=== PATIENT | male | born 1935 | race Caucasian/White ===

== ENCOUNTER 2017-07-23 19:54 | Inpatient (IN) | payer OTHER ==
[~2017-07-23] VITALS: Ht 172.7 cm; Wt 51.0 kg
[2017-07-23 20:15] VITALS: Ht 172.7 cm; Wt 51.0 kg
--- NOTE | 2017-07-24 01:42 | RADRPT ---
PROCEDURE: XR Chest. CLINICAL INDICATION: Cough. Possible sepsis. TECHNIQUE: Single frontal view of the chest was obtained COMPARISON: None FINDINGS: The heart and mediastinum are within normal limits. Aortic calcifications are present. The lungs are clear. There is no pleural effusion or pneumothorax. Surgical anchors overlie the right humeral head. Degenerative changes of the spine and shoulder join ts are present. IMPRESSION: 1. No acute cardiopulmonary disease. RPTAT:AAJJ Physician Mary Date Time Electronically viewed and signed by Nikki Baker Physician on 07/24/2017 01:42 QL/
[2017-07-24 01:48] LABS: BASOPHILS % 0.7 % (0.0-2.0); EOSINOPHILS # 0.1 10^3/ul (0.0-0.5); EOSINOPHILS % 2.2 % (0.0-7.0); HEMATOCRIT 37.4 % (42.0-52.0); HEMOGLOBIN 12.1 g/dl (14.0-18.0); LYMPHOCYTES # 1.5 10^3/ul (0.8-2.9); LYMPHOCYTES % 24.7 % (15.0-51.0); MEAN CORPUSCULAR HEMOGLOBIN 29.9 pg (29.0-33.0); MEAN CORPUSCULAR HGB CONC 32.4 g/dl (32.0-37.0); MEAN CORPUSCULAR VOLUME 92.3 fl (82.0-101.0); MEAN PLATELET VOLUME 10.5 fl (7.4-10.4); MONOCYTE # 0.4 10^3/ul (0.3-0.9); MONOCYTES % 6.2 % (0.0-11.0); NEUTROPHILS % 65.9 % (39.0-77.0); PLATELET COUNT 149 10^3/UL (140-415); RED BLOOD COUNT 4.05 10^6/ul (4.70-6.10); RED CELL DISTRIBUTION WIDTH 13.4 % (11.5-14.5)
[2017-07-24 01:53] LABS: ADD UMIC NO; UR ASCORBIC ACID NEGATIVE (NEGATIVE); UR BILIRUBIN (Dip) NEGATIVE (NEGATIVE); UR BLOOD (Dip) NEGATIVE (NEGATIVE); UR CLARITY CLEAR (CLEAR); UR COLOR STRAW (YELLOW); UR GLUCOSE (Dip) NEGATIVE (NEGATIVE); UR KETONES (Dip) NEGATIVE (NEGATIVE); UR LEUKOCYTE ESTERASE (Dip) NEGATIVE Leu/ul (NEGATIVE); UR NITRITE (Dip) NEGATIVE (NEGATIVE); UR SPECIFIC GRAVITY (Dip) 1.011 (1.003-1.030); UR TOTAL PROTEIN (Dip) NEGATIVE (NEGATIVE); UR UROBILINOGEN (Dip) NEGATIVE (NEGATIVE)
[2017-07-24 02:09] LABS: ALANINE AMINOTRANSFERASE 37 IU/L (13-69); ALBUMIN 3.8 g/dl (3.3-4.9); ALBUMIN/GLOBULIN RATIO 1.15; ALKALINE PHOSPHATASE 84 IU/L (42-121); ANION GAP 11 (8-16); ASPARTATE AMINO TRANSFERASE 26 IU/L (15-46); BILIRUBIN,INDIRECT 0.3 mg/dl (0-1.1); BILIRUBIN,TOTAL 0.3 mg/dl (0.2-1.3); BLOOD UREA NITROGEN 25 mg/dl (7-20); CALCIUM 9.1 mg/dl (8.4-10.2); CARBON DIOXIDE 34 mmol/L (21-31); CHLORIDE 104 mmol/L (97-110); CREATININE 0.91 mg/dl (0.61-1.24); GLUCOSE 99 mg/dl (70-220); POTASSIUM 4.3 mmol/L (3.5-5.1); SODIUM 145 mmol/L (135-144); TOTAL PROTEIN 7.1 g/dl (6.1-8.1)
[2017-07-24 02:28] LABS: TROPONIN-I < 0.012 ng/ml (0.00-0.12)
[2017-07-24 02:40] LABS: INR 1.08; PT RATIO 1.1
[2017-07-24 02:41] LABS: PARTIAL THROMBOPLASTIN TIME 30.5 Sec (25.0-35.0)
--- NOTE | 2017-07-24 02:59 | ERD ---
ER Documentation Chief Complaint Chief Complaint swelling and ulcers on lower bilateral leg;mech fall today (denies syncope) HPI This 82-year-old male swelling and ulcers on his bilateral lower extremities. Weeping wounds noted by family. Family brought him in for evaluation. No known history of diabetes. Family says has been getting progressively worse over the past 3 weeks. ROS All systems reviewed and are negative except as per history of present illness. Allergies Allergies: Coded Allergies: No Known Allergy (Unverified , 07/23/17) PMhx/Soc History of Surgery: Yes (shoulder sx) Anesthesia Reaction: No Hx Neurological Disorder: No Hx Respiratory Disorders: No Hx Cardiac Disorders: Yes (HTN, Cardiac problems) Hx Psychiatric Problems: No Hx Miscellaneous Medical Probl: No Hx Alcohol Use: No Hx Substance Use: No Hx Tobacco Use: No Smoking Status: Never smoker Physical Exam Vitals Vital Signs Date Time Temp Pulse Resp B/P Pulse Ox O2 Delivery O2 Flow Rate FiO2 07/23/17 20:15 98.1 68 20 190/81 100 Physical Exam Const: [] Head: Atraumatic Eyes: Normal Conjunctiva ENT: Normal External Ears, Nose and Mouth. Neck: Full range of motion..~ No meningismus. Resp: Clear to auscultation bilaterally Cardio: Regular rate and rhythm, no murmurs Abd: Soft, non tender, non distended. Normal bowel sounds Skin: Notable weeping wounds noted on bilateral lower extremities to the midcalf Back: No midline or flank tenderness Ext: No cyanosis, or edema Neur: Awake and alert Psych: Normal Mood and Affect Result Diagram: 07/24/17 0124 07/24/17 0111 Results 24 hrs Laboratory Tests Test 07/24/17 01:11 07/24/17 01:24 07/24/17 01:28 07/24/17 01:33 Sodium Level 145mmol/L Potassium Level 4.3mmol/L Chloride Level 104mmol/L Carbon Dioxide Level 34mmol/L Anion Gap 11 Blood Urea Nitrogen 25mg/dl Creatinine 0.91mg/dl Glucose Level 99mg/dl Calcium Level 9.1mg/dl Total Bilirubin 0.3mg/dl Direct Bilirubin 0.00mg/dl Indirect Bilirubin 0.3mg/dl Aspartate Amino Transf (AST/SGOT) 26IU/L Alanine Aminotransferase (ALT/SGPT) 37IU/L Alkaline Phosphatase 84IU/L Troponin I < 0.012ng/ml Total Protein 7.1g/dl Albumin 3.8g/dl Globulin 3.30g/dl Albumin/Globulin Ratio 1.15 White Blood Count 6.010^3/ul Red Blood Count 4.0510^6/ul Hemoglobin 12.1g/dl Hematocrit 37.4% Mean Corpuscular Volume 92.3fl Mean Corpuscular Hemoglobin 29.9pg Mean Corpuscular Hemoglobin Concent 32.4g/dl Red Cell Distribution Width 13.4% Platelet Count 62532^3/UL Mean Platelet Volume 10.5fl Neutrophils % 65.9% Lymphocytes % 24.7% Monocytes % 6.2% Eosinophils % 2.2% Basophils % 0.7% Nucleated Red Blood Cells % 0.0/100WBC Neutrophils # 4.010^3/ul Lymphocytes # 1.510^3/ul Monocytes # 0.410^3/ul Eosinophils # 0.110^3/ul Basophils # 0.010^3/ul Nucleated Red Blood Cells # 0.010^3/ul Prothrombin Time 14.0Sec Prothrombin Time Ratio 1.1 INR International Normalized Ratio 1.08 Activated Partial Thromboplast Time 30.5Sec Lactic Acid Level 1.2mmol/L Urine Color STRAW Urine Clarity CLEAR Urine pH 8.0 Urine Specific [place] 1.011 Urine Ketones NEGATIVEmg/dL Urine Nitrite NEGATIVEmg/dL Urine Bilirubin NEGATIVEmg/dL Urine Urobilinogen NEGATIVEmg/dL Urine Leukocyte Esterase NEGATIVELeu/ul Urine Hemoglobin NEGATIVEmg/dL Urine Glucose NEGATIVEmg/dL Urine Total Protein NEGATIVEmg/dl Procedures/MDM Medical decision-makin-year-old male with cellulitic changes to bilateral lower extremities. Patient will be admitted to hospitalist Departure Diagnosis: Primary Impression: Cellulitis Site of cellulitis: extremity Site of cellulitis of extremity: lower extremity Laterality: unspecified laterality Qualified Code: L03.119 - Cellulitis of lower extremity, unspecified laterality Condition: Serious ASHLEY SEN Jul 24, 2017 02:59
[2017-07-24] MEDS ORDERED: PIPER-TAZO 3.375 GM IV (PMX) 50 ML IV ONE (03:00)
[2017-07-24] MEDS ORDERED: TAMS-14 PO (08:08)
[2017-07-24] MEDS ORDERED: FURO40TA4 PO (08:08)
[2017-07-24] MEDS ORDERED: RIVA20TA PO (08:09)
[2017-07-24] MEDS ORDERED: ASPI81TA3 PO (08:09)
[2017-07-24 12:08] VITALS: PULSE 58; RESP 16
--- NOTE | 2017-07-24 13:57 | HP ---
Date/Time of Note Date/Time of Note DATE: 07/24/17 TIME: 13:50 Assessment/Plan VTE Prophylaxis VTE Prophylaxis Intervention: LMWH Lines/Catheters IV Catheter Type (from [facility]): Peripheral IV Urinary Cath still in place: No Assessment/Plan Assessment/Plan -Bilateral lower extremity cellulitis and ulceration. Will start vancomycin and Levaquin. Obtain wound care consult. Dr. Muller is asked to see patient in infection disease consultation. -Bilateral lower extremities edema most likely secondary to cellulitis, will obtain bilateral lower extremity ultrasound to rule out deep venous thrombosis. -Hypertension -Congestive heart failure -BPH Further recommendations based on clinical course. Plan of care discussed with Dr. Melo. HPI/ROS Admit Date/Time Admit Date/Time Jul 24, 2017 at 03:30 Hx of Present Illness The patient is 82-year-old gentleman who was brought to emergency room by family him home due to bilateral lower extremity swelling and ulcers. Patient is a poor historian and most of the history was obtained from medical records and talking to nursing staff. Patient has a history of hypertension, CHF, BPH. Patient was diagnosed with bilateral lower extremity cellulitis and admitted for further evaluation and management. Patient denies any nausea vomiting denies diarrhea denies shortness of breath, denies chest pain. ROS Per HPI PMH/Family/Social Past Medical History Medical History: congestive heart failure, hypertension Past Surgical History S/p right shoulder surgery Family History Significant Family History: no pertinent family hx Social History Alcohol Use: none Smoking Status: Never smoker Drug Use: none Exam/Review of Systems Vital Signs Vitals Vital Signs Date Time Temp Pulse Resp B/P Pulse Ox O2 Delivery O2 Flow Rate FiO2 07/24/17 12:08 98.0 58 16 99 Room Air 07/24/17 11:14 172/82 Exam Constitutional: alert, oriented Head: normocephalic Neck: supple Respiratory: normal air movement Cardiovascular: nl pulses Gastrointestinal: non-tender, soft Extremities: edema, normal pulses, other (Erythema) Neurological: nl mental status Skin: other (Left lower extremity ulcer) Labs Result Diagram: 07/24/17 0124 07/24/17 0111 ELIZABETH SOUZA Jul 24, 2017 13:57
[2017-07-24] MEDS ORDERED: VANCOMYCIN IV PER PHARMACY XX SCH (14:00)
[2017-07-24] MEDS ORDERED: HYDROmorphONE 1 MG/ML SYG IV STA (14:05)
[2017-07-24] MEDS ORDERED: ONDANSETRON 4 MG INJ IV STA (14:05)
[2017-07-24] MEDS ORDERED: HYDROmorphONE 1 MG/ML SYG ONE (14:11)
[2017-07-24] MEDS ORDERED: ONDANSETRON 4 MG INJ ONE (14:11)
[2017-07-24] MEDS ORDERED: ENOXAPARIN 40 MG/0.4 ML SYG SC ONE (14:20)
[2017-07-24] MEDS: LEVOFLOXACIN 500MG/D5W (PMX) 100 ML IVPB SCH (14:24)
[2017-07-24] MEDS ORDERED: ACETAMINOPHEN 325 MG TAB PO PRN (15:00)
[2017-07-24] MEDS ORDERED: VANCOMYCIN 1 GM in NS 250 ML IVPB SCH (15:00)
--- NOTE | 2017-07-24 15:43 | RADRPT ---
PROCEDURE: US Lower extremity Venous. CLINICAL INDICATION: Edema TECHNIQUE: Multiple sonographic images of the bilateral lower extremity deep venous system was obt ained utilizing grayscale, color-flow, compressive sonography and doppler imaging with augmentation. The images were reviewed on a PACS workstation. COMPARISON: None. FINDINGS: There is normal compressibility and flow within the bilateral common femoral, deep femoral, superfic ial femoral, posterior tibial, peroneal and popliteal veins. IMPRESSION: 1. No sonographic evidence for deep venous thrombosis within the bilateral lower extremities. RPTAT: AARR Physician Belen Date Time Electronically viewed and signed by Physician Belen on 07/24/2017 15:43 TRINA/
[2017-07-24] MEDS: ENOXAPARIN 30 MG/0.3 ML SYG SC SCH (15:56)
--- NOTE | 2017-07-24 17:20 | CONS ---
DATE OF ADMISSION: 07/24/2017 DATE OF CONSULTATION: 07/24/2017 TYPE OF CONSULTATION: Infectious Disease. REASON FOR CONSULTATION: Antibiotic management. HISTORY OF PRESENT ILLNESS: The patient is an 82-year-old male, actually male, who was bro ught to the emergency room with bilateral lower extremity swelling and ulcers. His past problems in clude: 1. Hypertension. 2. Congestive heart failure. 3. Benign prostatic hypertrophy. 4. Status post right shoulder surgery. The patient was diagnosed with bilateral lower extremity ce llulitis and admitted. He has significant stasis changes of his lower extremities. On admission, h e was placed on vancomycin and Levaquin. PAST MEDICAL HISTORY: Operations as outlined. FAMILY HISTORY: Noncontributory. SOCIAL HISTORY: He does not smoke, drink or abuse drugs. ALLERGIES: NONE TO PENICILLIN, SULFA OR FOODS. MEDICATIONS: Per chart. REVIEW OF SYSTEMS: As per HPI. PHYSICAL EXAMINATION: GENERAL: The patient is an elderly, ill-appearing male who is awake, responsive, in no acute distre ss. His son is at his bedside. SKIN: Without generalized rash. HEENT: Within normal limits. NECK: Supple. LYMPH NODES: None palpable. CHEST: Decreased breath sounds at the bases. HEART: Without murmur or gallop. ABDOMEN: Soft, nontender, without organosplenomegaly or masses. EXTREMITIES: He has bilateral lower extremity stasis dermatitis with some mild erythema and some 1+ edema. RECTAL/GENITAL: Exam is deferred. He has a left lower extremity ulcer. RECTAL AND GENITAL: Deferred. NEUROLOGIC: No focal neurological abnormalities. ANCILLARY LABORATORY DATA: The patient's white count 6.0, H and H 12.1 and 37.4, platelet count 149 ,000. BUN and creatinine 25/0.91. IMPRESSION AND PLAN: The patient has a combination of congestive heart failure and cellulitis of esequiel th lower extremities. He was started on vancomycin and Levaquin, which is a reasonable combination. His chest x-ray showed no acute disease. We will continue him on this regimen, he received 1 dose of Zosyn. I will dictate my findings to Dr. Melo and to nurse practitioner . Dictated By: MAR CHOWDHURY MD, JD/PORTER Conf#: [id number] DID#: [id number] CC: MAR CHOWDHURY MD; CASSIDY MELO MD;*End*
[2017-07-24 18:00] VITALS: BP 150/67; PULSE 74; RESP 18
[2017-07-24] MEDS ORDERED: FAMOTIDINE 20 MG TAB PO SCH (21:00)
--- NOTE | 2017-07-24 21:15 | RADRPT ---
PROCEDURE: CT Brain without contrast. CLINICAL INDICATION: Trauma TECHNIQUE: A CT of the brain was performed on a multidetector CT scanner utilizing axial imaging f rom the skull base through the vertex without IV contrast. Multiplanar reformatted images were made . Images were reviewed on a PACS workstation. The CTDIvol is 712 mGy and the DLP is I would 45 mGy cm. DICOM images are available. One or more of the following dose reduction techniques were utilized: 1.) Automated exposure control 2.) Adjustment of the mA +/- kV according to patient's size 3.) Use of iterative reconstruction technique. COMPARISON: None FINDINGS: There is moderate to severe diffuse cerebral volume loss with sulcal and ventricular dilatation. No discrete extra-axial fluid collection or masses seen. Ventricles are in the midline. There is perive ntricular white matter disease in both cerebral hemispheres. No associated mass effect is seen. Ther e is preservation of normal cole-white discrimination. There is no intracranial hemorrhage. A polyp or mucous retention cyst is present in the left maxillary sinus. There is no skull fracture. IMPRESSION: No intracranial hemorrhage or skull fracture. Atrophy. 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 .Juan Wilson MD, MD Date Time Electronically viewed and signed by .Juan Wilson MD, on 07/24/2017 21:15 .A/
[2017-07-24] MEDS ORDERED: PANTOPRAZOLE 40 MG INJ IV ONE (23:00)
[2017-07-24] MEDS: ONDANSETRON 4 MG INJ IV PRN (23:17)
[2017-07-25 02:00] VITALS: BP 133/63; PULSE 88; RESP 16
[2017-07-25 05:58] LABS: ABNORMAL IP MESSAGE 1; BASOPHILS % 0.1 % (0.0-2.0); HEMATOCRIT 36.9 % (42.0-52.0); HEMOGLOBIN 12.5 g/dl (14.0-18.0); LYMPHOCYTES # 0.4 10^3/ul (0.8-2.9); LYMPHOCYTES % 2.4 % (15.0-51.0); MEAN CORPUSCULAR HEMOGLOBIN 30.9 pg (29.0-33.0); MEAN CORPUSCULAR HGB CONC 33.9 g/dl (32.0-37.0); MEAN CORPUSCULAR VOLUME 91.1 fl (82.0-101.0); MEAN PLATELET VOLUME 10.5 fl (7.4-10.4); MONOCYTE # 0.7 10^3/ul (0.3-0.9); MONOCYTES % 4.3 % (0.0-11.0); NEUTROPHIL # 15.9 10^3/ul (1.6-7.5); NEUTROPHILS % 92.7 % (39.0-77.0); PLATELET COUNT 141 10^3/UL (140-415); POSITIVE DIFF @See below; RED BLOOD COUNT 4.05 10^6/ul (4.70-6.10); RED CELL DISTRIBUTION WIDTH 13.2 % (11.5-14.5); WHITE BLOOD COUNT 17.2 10^3/ul (4.8-10.8)
[2017-07-25] MEDS ORDERED: PANTOPRAZOLE 40 MG INJ IV SCH (06:00)
[2017-07-25 06:48] LABS: CALCIUM 8.9 mg/dl (8.4-10.2); CREATININE 0.87 mg/dl (0.61-1.24); POTASSIUM 3.5 mmol/L (3.5-5.1)
[2017-07-25 07:16] LABS: THYROID STIMULATING HORMONE 2.08 MIU/L (0.465-4.680)
[2017-07-25] MEDS: ENOXAPARIN 30 MG/0.3 ML SYG SC SCH (10:00)
[2017-07-25 10:30] VITALS: BP 128/67; PULSE 59; RESP 20
[2017-07-25] MEDS: VANCOMYCIN 750 MG in DEXTROSE 5% 150 ML IVPB SCH (14:28)
[2017-07-25] MEDS: LEVOFLOXACIN 500MG/D5W (PMX) 100 ML IVPB SCH (14:28)
--- NOTE | 2017-07-25 15:56 | PN ---
Date/Time of Note Date/Time of Note DATE: 07/25/17 TIME: 15:52 Assessment/Plan VTE Prophylaxis VTE Prophylaxis Intervention: LMWH Lines/Catheters [facility] Saline Lock Urinary Cath still in place: No Assessment/Plan Chief Complaint/Hosp Course white blood cells increased to 17,000 will check lactate continue antibiotics and IV fluids Assessment/Plan -Bilateral lower extremity cellulitis and ulceration. Continue vancomycin and Levaquin. Obtain wound care consult. Dr. Muller is following in infection disease consultation. -Bilateral lower extremities edema most likely secondary to cellulitis, ultrasound is negative for DVT, will obtain arterial Doppler to evaluate for possible arterial disease since patient has ulcers. -Hypertension -Congestive heart failure -BPH Further recommendations based on clinical course. Plan of care discussed with Dr. Melo. Problems: Exam/Review of Systems Vital Signs Vitals Vital Signs Date Time Temp Pulse Resp B/P Pulse Ox O2 Delivery O2 Flow Rate FiO2 07/25/17 10:30 98.0 59 20 128/67 95 Room Air Intake and Output 07/24/17 07/24/17 07/25/17 14:59 22:59 06:59 Intake Total 100 ml Output Total 700 ml 325 ml Balance -700 ml -225 ml Exam Constitutional: alert, oriented Respiratory: normal air movement Cardiovascular: nl pulses Gastrointestinal: non-tender, soft Extremities: edema, normal pulses, other (Erythema) Neurological: nl mental status Skin: other (Left lower extremity ulcer) Results Result Diagram: 07/25/17 0423 07/25/17 0423 Results 24 hrs Laboratory Tests Test 07/25/17 04:23 White Blood Count 17.2 #H Red Blood Count 4.05 L Hemoglobin 12.5 L Hematocrit 36.9 L Mean Corpuscular Volume 91.1 Mean Corpuscular Hemoglobin 30.9 Mean Corpuscular Hemoglobin Concent 33.9 Red Cell Distribution Width 13.2 Platelet Count 141 Mean Platelet Volume 10.5 H Neutrophils % 92.7 H Lymphocytes % 2.4 L Monocytes % 4.3 Eosinophils % 0.0 Basophils % 0.1 Nucleated Red Blood Cells % 0.0 Neutrophils # 15.9 H Lymphocytes # 0.4 L Monocytes # 0.7 Eosinophils # 0.0 Basophils # 0.0 Nucleated Red Blood Cells # 0.0 Sodium Level 143 Potassium Level 3.5 Chloride Level 102 Carbon Dioxide Level 32 H Anion Gap 13 Blood Urea Nitrogen 19 Creatinine 0.87 Glucose Level 111 Hemoglobin A1c 5.1 Calcium Level 8.9 B-Type Natriuretic Peptide 3090 H Thyroid Stimulating Hormone (TSH) 2.080 Medications Medications Current Medications Levofloxacin/ Dextrose (Levaquin 500mg/ D5W 100 ml (Pmx)) 100 ml @ 100 mls/hr Q24H IVPB Last administered on 07/25/17 14:28; Admin Dose 100 MLS/HR; Start 07/24/17 at 14:00 Enoxaparin Sodium (Lovenox) 30 mg DAILY SC Last administered on 07/25/17 10: 00; Admin Dose 30 MG; Start 07/24/17 at 14:00 Ondansetron HCl (Zofran Inj) 4 mg Q6H PRN IV NAUSEA AND/OR VOMITING Last administered on 07/24/17 23:17; Admin Dose 4 MG; Start 07/24/17 at 15:00 Acetaminophen (Tylenol Tab) 650 mg Q6H PRN PO PAIN LEVEL 1-3 OR FEVER Last administered on 07/25/17 05:13; Admin Dose 650 MG; Start 07/24/17 at 15:00 Morphine Sulfate (morphine) 2 mg Q4H PRN IV SEVERE PAIN LEVEL 7-10; Start at 15:00 Docusate Sodium 100 mg 100 mg Q12H PRN PO CONSTIPATION; Start 07/24/17 at 15: 00 Vancomycin HCl/ Dextrose/Water (Vancocin/D5W) 150 ml @ 75 mls/hr Q24H IVPB Last administered on 07/25/17 14:28; Admin Dose 75 MLS/HR; Start 07/25/17 at 15:30 Pantoprazole (Protonix Iv) 40 mg DAILY@06 IV Last administered on 07/25/17 06 :30; Admin Dose 40 MG; Start 07/25/17 at 06:00 ELIZABETH SOUZA Jul 25, 2017 15:56
--- NOTE | 2017-07-25 16:07 | RADRPT ---
Echocardiogram Report Patient Name: HERMANN CHAVEZ Gender: Male Date: 1935 Study Date: 25-Jul-2017 [employer]ator Store: [employer] [facility] Location: [facility] Ref. Physician: CASSIDY CLIFTON Quality: Technically Difficult Study Procedures: Transthoracic echocardiogram with complete 2D, M-Mode, and doppler examination. Indications: Evaluate for infection. 2D/M Mode Doppler Measurement Value Normal Ranges Measurement Value Normal Ranges LVIDd 2D 4.4 3.5 - 5.6 cm AV Peak Avery 1.4 m/sec LVIDs 2D 2.2 2.1 - 4.1 cm AV Peak PG 7.4 mmHg LVPWd 2D 1.3 0.6 - 1.1 cm LVOT Peak Avery 0.9 m/sec IVSd 2D 1.2 0.6 - 1.1 cm LVOT Peak PG 3.2 mmHg AoR Diam 2D 2.5 2.0 - 3.7 cm MV E Peak Avery 0.7 m/sec EDV 2D 87.4 cm3 MV A Peak Avery 0.2 m/sec ESV 2D 10.9 cm3 MV E/A 3.4 LA Dimen 2D 3.5 2.3 - 4.0 cm MV Decel Time 149 msec MV Decel [place] 5 MV E/A 3.4 TR Peak Avery 2.2 m/sec TR Peak PG 19.5 mmHg RVSP 23.0 mmHg Findings Left Ventricle: Normal left ventricular systolic function. Normal left ventricular cavity size. Mild concentric left ventricular hypertrophy. Ejection fraction is visually estimated at 60 %. Abnormal Diastolic Function. Right Ventricle: Normal right ventricular size. Normal right ventricular systolic function. Left Atrium: There is moderate enlargement of left atrium. Right Atrium: There is mild enlargement of right atrium. Mitral Valve: Mitral valve leaflets appear mildly thickened. Mild mitral annular calcification. Trace mitral regurgitation. Aortic Valve: No significant aortic stenosis or insufficiency. Aortic cusps appear mildly calcified. Tricuspid Valve: Normal appearance of the tricuspid valve. Estimated peak PA systolic pressure 23 mmHg. There is trace tricuspid regurgitation. Pulmonic Valve: Normal pulmonic valve appearance. Pericardium: Normal pericardium with no significant pericardial effusion. Aorta: Normal aortic root. IVC: Normal size and normal respiratory collapse consistent with normal right atrial pressure. Conclusions 1.Normal left ventricular systolic function. Normal left ventricular cavity size. Mild concentric left ventricular hypertrophy. Ejection fraction is visually estimated at 60 %. Abnormal Diastolic Function. 2.Normal right ventricular size. Normal right ventricular systolic function. 3.There is moderate enlargement of left atrium. 4.There is mild enlargement of right atrium. 5.No significant valvular stenosis or regurgitation seen. 6.Normal pericardium with no significant pericardial effusion. Electronically Signed By: Chester Gomez 25-Jul-2017 16:06:26 -0800 Patient Name: HERMANN CHAVEZ Study Date: 25-Jul-2017 [id number]
[2017-07-25] MEDS: ASPIRIN (EC) 325 MG TAB PO SCH (18:00)
[2017-07-25 19:56] VITALS: BP 138/66; RESP 21
[2017-07-25 20:00] VITALS: BP 138/66; PULSE 81; RESP 21
--- NOTE | 2017-07-25 20:25 | PN ---
DATE: 07/25/2017 INFECTIOUS DISEASE PROGRESS NOTE SUBJECTIVE: No acute events overnight. The patient is alert, eating lunch, looks comfortable, enrrique es nausea, vomiting, diarrhea, and no dysuria. He has bilateral lower extremity pain. LABORATORY DATA: WBC 17.2, platelets 141, neutrophils 92.7, BUN 19, creatinine 0.87. MICROBIOLOGY: Blood culture remains negative. Urine culture consistent with contaminant. DIAGNOSTICS: Chest x-ray on admission revealed no acute cardiopulmonary disease. CT of the brain s howed no acute abnormalities. A bilateral lower extremities ultrasound was negative for DVT. ALLERGIES: NONE. ANTIMICROBIALS: The patient is on: 1. Vancomycin. 2. Levaquin. PHYSICAL EXAMINATION: GENERAL: This is a fragile, well-developed, elderly man who is alert, in no distress. HEENT: Head atraumatic, normocephalic. Sclerae anicteric. Buccal mucosa pink. NECK: Supple. CHEST: Rise symmetrical. Breath sounds clear. HEART: S1, S2. ABDOMEN: Soft. Bowel tones present. EXTREMITIES: Without edema. Patient has necrotic wounds on the back of his calves and feet. ASSESSMENT: 1. Systemic inflammatory response syndrome. 2. Bilateral lower extremity chronic wounds. 3. Hypertension. 4. Congestive heart failure. 5. BPH. PLAN: Patient remains clinically stable, again with increased leukocytosis and neutrophils. He is on broad spectrum antibiotics, which we will continue. Consider arterial study and podiatry and vas cular recommendations. Continue local wound care and offload. Dictated By: NOVA OLIVIER RODENT EXTERMINATOR for MAR CHOWDHURY MD NI/NTS Conf#: [id number] DID#: [id number] CC: CASSIDY CLIFTON MD;*EndCC*
[2017-07-25] MEDS: morphine 2 MG INJ IV PRN (22:46)
[2017-07-25 23:31] VITALS: BP 131/62; RESP 20
[2017-07-26] VITALS: BP 131/62; PULSE 78; RESP 20
--- NOTE | 2017-07-26 00:52 | RADRPT ---
PROCEDURE: US left Lower extremity Arteries. CLINICAL INDICATION: Leg ulcers. TECHNIQUE: Multiple longitudinal and transverse images of the left lower extremity arteries were o btained with cole scale and color Doppler imaging. COMPARISON: None. FINDINGS: LEFT LOWER EXTREMITY Peak Systolic velocity FREIGHT BREAKER 118 cm/sec PSFA 59 cm/sec MSFA 36 cm/sec DSFA 71 cm/sec POP 55 cm/sec TRIBAL JUDGE 84 cm/sec DPA 17 cm/sec There are biphasic wave forms a left common femoral artery. There are monophasic waveforms distally involving the superficial femoral artery through the dorsalis pedis artery. There is diffuse plaque formation, greatest at the proximal superficial artery approximately 32%. IMPRESSION: Mild diffuse plaque formation greatest in the proximal superficial femoral artery, No evidence for h emodynamically significant stenosis or occlusion. RPTAT: HMVK .Chester Rivera MD, Date Time Electronically viewed and signed by .Chester Rivera MD, on 07/26/2017 00:51 .K/
--- NOTE | 2017-07-26 00:56 | RADRPT ---
PROCEDURE: US RIGHT LOWER EXTREMITY ARTERIES CLINICAL INDICATION: 82 years of age, male. Bilateral lower extremity ulcers. TECHNIQUE: Multiple longitudinal and transverse images of the right lower extremity arteries were obtained with cole scale and color Doppler imaging. COMPARISON: No prior studies are available for comparison. FINDINGS: Vessel Right (PSV cm/sec) Additional comment ROUGHENER 138 Triphasic DFA 158 Triphasic Prox SFA 100 Triphasic Mid SFA 135 Triphasic Distal SFA 70 Triphasic Pop 74 Biphasic VINEYARD WORKER 40 Biphasic NANCY Not evaluated Not evaluated DPA 36 Biphasic Triphasic flow is seen within the right common femoral and superficial femoral arteries. There is a biphasic wave form in the popliteal and calf arteries. There is atherosclerotic calcification throug hout the arteries of the lower extremity with 48% stenosis of the proximal deep femoral artery on gr ay scale. IMPRESSION: 1. Negative for evidence of hemodynamically significant stenosis along the right lower extremity art eries. 2. Vascular calcification throughout the right lower extremity arteries with a 20-49% stenosis of th e DFA by velocity and cole-scale criteria due to atherosclerotic plaque. Velocity ratio between mid and distal SFA is 1.9 in keeping with 20-49% stenosis of the mid SFA. RPTAT: HCTS Physician Jacquelyn Date Time Electronically viewed and signed by Physician Jacquelyn on 07/26/2017 00:55 /
[2017-07-26] MEDS: PANTOPRAZOLE (EC) 40 MG TAB PO SCH (05:33)
[2017-07-26 08:00] VITALS: BP 183/77; PULSE 79; RESP 20
[2017-07-26] MEDS: ASPIRIN (EC) 325 MG TAB PO SCH (09:46)
[2017-07-26] MEDS: ENOXAPARIN 30 MG/0.3 ML SYG SC SCH (10:16)
--- NOTE | 2017-07-26 12:45 | CONS ---
Date/Time of Note Date/Time of Note DATE: 07/26/17 TIME: 12:39 Assessment/Plan Assessment/Plan Additional Assessment/Plan Cellulitis with lower extremity skin breakdown Atrial fibrillation Preserved ejection fraction -Patient with atrial fibrillation with known history of in discussion with patient and has been on Xarelto. Would continue anticoagulation. Rate appears controlled at the current time. Antibiotics as per infectious disease. Consultation Date/Type/Reason Admit Date/Time Jul 24, 2017 at 03:30 Type of Consultation: cv Reason for Consultation Atrial fibrillation Hx of Present Illness This is an 82-year-old male with past medical history of hypertension, atrial fibrillation who presents with worsening ulcerations and pain in his lower feet. Patient admitted and being worked up for cellulitis. Patient found to be in atrial fibrillation and for this reason cardiology consultation was requested. As per the patient, he knows he has a history of irregular heartbeats and was on Coumadin in the past but was changed to a different anticoagulate. He denies any exertional chest pain or shortness of breath but does admit to minimal activity because of his lower extremity ulcers and pain. Denies any palpitations, dizziness or lightheadedness at the current time. He does live at home with his 12 point review of systems was performed with all pertinent positives and negatives mentioned above and all else is negative Past Medical History Atrial fibrillation Medical History: congestive heart failure, hypertension Family History Significant Family History: no pertinent family hx Social History Alcohol Use: none Smoking Status: Never smoker Drug Use: none Exam/Review of Systems Vital Signs Vitals Vital Signs Date Time Temp Pulse Resp B/P Pulse Ox O2 Delivery O2 Flow Rate FiO2 07/25/17 23:31 98.2 68 20 131/62 93 07/25/17 10:30 Room Air Exam No apparent distress Constitutional: alert, frail, oriented Head: normocephalic Respiratory: other (Coarse breath sounds bilaterally, no wheezing) Cardiovascular: irregular rhythm, other (S1-S2 heard) Gastrointestinal: bowel sounds, non-tender, soft Extremities: edema, other (Bandages lower extremities) Results Result Diagram: 07/25/173 07/25/17422 Medications Medications Current Medications Levofloxacin/ Dextrose (Levaquin 500mg/ D5W 100 ml (Pmx)) 100 ml @ 100 mls/hr Q24H IVPB Last administered on 07/25/17t 14:28; Admin Dose 100 MLS/HR; Start 07/24/17 at 14:00 Enoxaparin Sodium (Lovenox) 30 mg DAILY SC Last administered on 07/26/17 10: 16; Admin Dose 30 MG; Start 07/24/17 at 14:00 Ondansetron HCl (Zofran Inj) 4 mg Q6H PRN IV NAUSEA AND/OR VOMITING Last administered on 07/24/17 23:17; Admin Dose 4 MG; Start 07/24/17 at 15:00 Acetaminophen (Tylenol Tab) 650 mg Q6H PRN PO PAIN LEVEL 1-3 OR FEVER Last administered on 07/25/17 05:13; Admin Dose 650 MG; Start 07/24/17 at 15:00 Morphine Sulfate (morphine) 2 mg Q4H PRN IV SEVERE PAIN LEVEL 7-10 Last administered on 07/25/17 22:46; Admin Dose 2 MG; Start 07/24/17 at 15:00 Docusate Sodium 100 mg 100 mg Q12H PRN PO CONSTIPATION; Start 07/24/17 at 15: 00 Vancomycin HCl/ Dextrose/Water (Vancocin/D5W) 150 ml @ 75 mls/hr Q24H IVPB Last administered on 07/25/17 14:28; Admin Dose 75 MLS/HR; Start 07/25/17 at 15:30 Aspirin (Ecotrin) 325 mg DAILY PO Last administered on 07/26/17 09:46; Admin Dose 325 MG; Start 07/25/17 at 18:00 Pantoprazole (Protonix Tab) 40 mg DAILY@06 PO Last administered on 07/26/17 05:33; Admin Dose 40 MG; Start 07/26/17 at 06:00 Miscellaneous Information (*Rx Drug Level Order Reminder*) 1 ONCE ONCE XX ; Start 07/27/17 at 14:30; Stop 07/27/17 at 14:31 Procedures Procedures Atrial fibrillation at 66 bpm, normal QRS duration, nonspecific ST abnormalities Chester Gomez DO Jul 26, 2017 12:45
[2017-07-26] MEDS: LEVOFLOXACIN 500MG/D5W (PMX) 100 ML IVPB SCH (14:31)
--- NOTE | 2017-07-26 14:42 | CONS ---
Date/Time of Note Date/Time of Note DATE: 07/26/17 TIME: 14:41 Assessment/Plan Assessment/Plan Chief Complaint/Hosp Course SUBJECTIVE: No acute events overnight. The patient is alert, eating lunch, looks comfortable, no fevers MICROBIOLOGY: Blood culture remains negative. Urine culture consistent with contaminant. DIAGNOSTICS: Chest x-ray on admission revealed no acute cardiopulmonary disease. CT of the brain showed no acute abnormalities. A bilateral lower extremities ultrasound was negative for DVT. ALLERGIES: NONE. ANTIMICROBIALS: 1. Vancomycin. 2. Levaquin. PHYSICAL EXAMINATION: GENERAL: This is a fragile, well-developed, elderly man who is alert, in no distress. HEENT: Head atraumatic, normocephalic. Sclerae anicteric. Buccal mucosa pink. NECK: Supple. CHEST: Rise symmetrical. Breath sounds clear. HEART: S1, S2. ABDOMEN: Soft. Bowel tones present. EXTREMITIES: Without edema. Patient has necrotic wounds on the back of his calves and feet. ASSESSMENT: 1. Systemic inflammatory response syndrome. 2. Bilateral lower extremity chronic wounds. 3. Hypertension. 4. Congestive heart failure. 5. BPH. PLAN: Remains stable, on broad spectrum antibiotics. Consider podiatry eval. Continue local wound care / offload, card rec-s noted. DW staff Problems: Consultation Date/Type/Reason Admit Date/Time Jul 25, 2017 at 09:26 Initial Consult Date Type of Consultation: id Exam/Review of Systems Vital Signs Vitals Vital Signs Date Time Temp Pulse Resp B/P Pulse Ox O2 Delivery O2 Flow Rate FiO2 07/26/17 08:00 97.8 79 20 183/77 93 Room Air Results Result Diagram: 07/25/17 0423 07/25/17 0423 Medications Medications Current Medications Levofloxacin/ Dextrose (Levaquin 500mg/ D5W 100 ml (Pmx)) 100 ml @ 100 mls/hr Q24H IVPB Last administered on 07/26/17 14:31; Admin Dose 100 MLS/HR; Start 07/24/17 at 14:00 Ondansetron HCl (Zofran Inj) 4 mg Q6H PRN IV NAUSEA AND/OR VOMITING Last administered on 07/24/17 23:17; Admin Dose 4 MG; Start 07/24/17 at 15:00 Acetaminophen (Tylenol Tab) 650 mg Q6H PRN PO PAIN LEVEL 1-3 OR FEVER Last administered on 07/25/17 05:13; Admin Dose 650 MG; Start 07/24/17 at 15:00 Morphine Sulfate (morphine) 2 mg Q4H PRN IV SEVERE PAIN LEVEL 7-10 Last administered on 07/25/17 22:46; Admin Dose 2 MG; Start 07/24/17 at 15:00 Docusate Sodium 100 mg 100 mg Q12H PRN PO CONSTIPATION; Start 07/24/17 at 15: 00 Vancomycin HCl/ Dextrose/Water (Vancocin/D5W) 150 ml @ 75 mls/hr Q24H IVPB Last administered on 07/25/17 14:28; Admin Dose 75 MLS/HR; Start 07/25/17 at 15:30 Aspirin (Ecotrin) 325 mg DAILY PO Last administered on 07/26/17 09:46; Admin Dose 325 MG; Start 07/25/17 at 18:00 Pantoprazole (Protonix Tab) 40 mg DAILY@06 PO Last administered on 07/26/17 05:33; Admin Dose 40 MG; Start 07/26/17 at 06:00 Miscellaneous Information (*Rx Drug Level Order Reminder*) 1 ONCE ONCE XX ; Start 07/27/17 at 14:30; Stop 07/27/17 at 14:31 NOVA OLIVIER NP Jul 26, 2017 14:42
--- NOTE | 2017-07-26 15:12 | RADRPT ---
Vent Rate: 88 bpm RR Interval: 0 msec TN Interval: 0 msec QRS Duration: 84 msec QT Interval: 408 msec QTC Interval: 493 msec P-R-T [place]: 0 - 70 - 80 degrees Atrial fibrillation with a competing junctional pacemaker Prolonged QT Abnormal ECG Electronically Signed By: Chester Gomez [id number]
--- NOTE | 2017-07-26 15:17 | RADRPT ---
Vent Rate: 65 bpm RR Interval: 0 msec [place] Interval: 0 msec QRS Duration: 90 msec QT Interval: 422 msec QTC Interval: 438 msec P-R-T [place]: 0 - 59 - 66 degrees Atrial fibrillation Abnormal ECG Electronically Signed By: Chester Gomez [id number]
[2017-07-26] MEDS: VANCOMYCIN 750 MG in DEXTROSE 5% 150 ML IVPB SCH (15:30)
[2017-07-26 19:32] VITALS: BP 186/89; RESP 18
[2017-07-26] MEDS: RIVAROXABAN 15 MG TABLET PO SCH (22:08)
[2017-07-27 01:56] VITALS: BP 170/79; RESP 16
[2017-07-27] MEDS: morphine 2 MG INJ IV PRN ×2 (03:40→14:58)
[2017-07-27] MEDS: PANTOPRAZOLE (EC) 40 MG TAB PO SCH (05:11)
[2017-07-27 07:15] VITALS: BP 128/60; RESP 18
[2017-07-27] MEDS: ASPIRIN (EC) 325 MG TAB PO SCH (08:57)
[2017-07-27 14:00] VITALS: BP 120/69; RESP 16
--- NOTE | 2017-07-27 14:26 | CONS ---
Date/Time of Note Date/Time of Note DATE: 07/27/17 TIME: 14:24 Assessment/Plan Assessment/Plan Chief Complaint/Hosp Course SUBJECTIVE: No acute events overnight. The patient is alert, eating lunch, looks comfortable, no fevers MICROBIOLOGY: Blood culture remains negative. Urine culture consistent with contaminant. DIAGNOSTICS: Chest x-ray on admission revealed no acute cardiopulmonary disease. CT of the brain showed no acute abnormalities. A bilateral lower extremities ultrasound was negative for DVT. ALLERGIES: NONE. ANTIMICROBIALS: 1. Vancomycin. 2. Levaquin. PHYSICAL EXAMINATION: GENERAL: This is a fragile, well-developed, elderly man who is alert, in no distress. HEENT: Head atraumatic, normocephalic. Sclerae anicteric. Buccal mucosa pink. NECK: Supple. CHEST: Rise symmetrical. Breath sounds clear. HEART: S1, S2. ABDOMEN: Soft. Bowel tones present. EXTREMITIES: Without edema. Patient has necrotic wounds on the back of his calves and feet. ASSESSMENT: 1. Systemic inflammatory response syndrome. 2. 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 3. Hypertension. 4. Congestive heart failure. 5. BPH. PLAN: Remains stable, continue antibiotics, continue local wound care / offload , f/u labs, PT. DW staff Problems: Consultation Date/Type/Reason Admit Date/Time Jul 25, 2017 at 09:26 Type of Consultation: id Exam/Review of Systems Vital Signs Vitals Vital Signs Date Time Temp Pulse Resp B/P Pulse Ox O2 Delivery O2 Flow Rate FiO2 07/27/17 14:00 98.0 75 16 120/69 97 07/26/17 08:00 Room Air Intake and Output 07/26/17 07/26/17 07/27/17 15:00 23:00 07:00 Intake Total 360 ml Output Total 600 ml Balance -240 ml Results Result Diagram: 07/25/17 0423 07/25/17 0423 Medications Medications Current Medications Levofloxacin/ Dextrose (Levaquin 500mg/ D5W 100 ml (Pmx)) 100 ml @ 100 mls/hr Q24H IVPB Last administered on 07/26/17 14:31; Admin Dose 100 MLS/HR; Start 07/24/17 at 14:00 Ondansetron HCl (Zofran Inj) 4 mg Q6H PRN IV NAUSEA AND/OR VOMITING Last administered on 07/24/17 23:17; Admin Dose 4 MG; Start 07/24/17 at 15:00 Acetaminophen (Tylenol Tab) 650 mg Q6H PRN PO PAIN LEVEL 1-3 OR FEVER Last administered on 07/25/17 05:13; Admin Dose 650 MG; Start 07/24/17 at 15:00 Morphine Sulfate (morphine) 2 mg Q4H PRN IV SEVERE PAIN LEVEL 7-10 Last administered on 07/27/17 03:40; Admin Dose 2 MG; Start 07/24/17 at 15:00 Docusate Sodium 100 mg 100 mg Q12H PRN PO CONSTIPATION; Start 07/24/17 at 15: 00 Vancomycin HCl/ Dextrose/Water (Vancocin/D5W) 150 ml @ 75 mls/hr Q24H IVPB Last administered on 07/26/17 15:30; Admin Dose 75 MLS/HR; Start 07/25/17 at 15:30 Aspirin (Ecotrin) 325 mg DAILY PO Last administered on 07/27/17 08:57; Admin Dose 325 MG; Start 07/25/17 at 18:00 Pantoprazole (Protonix Tab) 40 mg DAILY@06 PO Last administered on 07/27/17 05 :11; Admin Dose 40 MG; Start 07/26/17 at 06:00 Miscellaneous Information (*Rx Drug Level Order Reminder*) 1 ONCE ONCE XX ; Start 07/27/17 at 14:30; Stop 07/27/17 at 14:31 Clonidine (Catapres) 0.1 mg Q6H PRN PO SBP above 160 Last administered on 02:49; Admin Dose 0.1 MG; Start 07/27/17 at 03:00 Hydralazine HCl (Apresoline) 25 mg Q6H PRN PO SBP more than 160. Last administered on 07/27/17 06:07; Admin Dose 25 MG; Start 07/27/17 at 05:30 NOVA OLIVIER NP Jul 27, 2017 14:26
[2017-07-27] MEDS: LEVOFLOXACIN 500MG/D5W (PMX) 100 ML IVPB SCH (14:51)
--- NOTE | 2017-07-27 14:56 | CONS ---
Date/Time of Note Date/Time of Note DATE: 07/27/17 TIME: 14:54 Assessment/Plan Assessment/Plan Chief Complaint/Hosp Course Cellulitis with lower extremity skin breakdown Atrial fibrillation Preserved ejection fraction Problems: Additional Assessment/Plan continue xarelto Consultation Date/Type/Reason Admit Date/Time Jul 25, 2017 at 09:26 Initial Consult Date Type of Consultation: cv 24 HR Interval Summary Free Text/Dictation no chest pain, no sob, no palpitations, no syncope or near syncope, less leg pain Detailed Summary Respiratory: no complaints Cardiovascular: no complaints Gastrointestinal: no complaints Musculoskeletal: no complaints Skin: skin lesions Endocrine: no complaints Lymphatic: no complaints Exam/Review of Systems Vital Signs Vitals Vital Signs Date Time Temp Pulse Resp B/P Pulse Ox O2 Delivery O2 Flow Rate FiO2 07/27/17 14:00 98.0 75 16 120/69 97 07/26/17 08:00 Room Air Intake and Output 07/26/17 07/26/17 07/27/17 15:00 23:00 07:00 Intake Total 360 ml Output Total 600 ml Balance -240 ml Exam Constitutional: alert, oriented Head: atraumatic, normocephalic Neck: supple Respiratory: clear to auscultation Cardiovascular: irregular rhythm Gastrointestinal: soft Musculoskeletal: nl extremities to inspection Extremities: other (reduced pulses) Skin: other Results Result Diagram: 07/25/1742207/25/17422 Medications Medications Current Medications Levofloxacin/ Dextrose (Levaquin 500mg/ D5W 100 ml (Pmx)) 100 ml @ 100 mls/hr Q24H IVPB Last administered on 07/27/17 14:51; Admin Dose 100 MLS/HR; Start 07/24/17 at 14:00 Ondansetron HCl (Zofran Inj) 4 mg Q6H PRN IV NAUSEA AND/OR VOMITING Last administered on 07/24/17 23:17; Admin Dose 4 MG; Start 07/24/17 at 15:00 Acetaminophen (Tylenol Tab) 650 mg Q6H PRN PO PAIN LEVEL 1-3 OR FEVER Last administered on 07/25/17 05:13; Admin Dose 650 MG; Start 07/24/17 at 15:00 Morphine Sulfate (morphine) 2 mg Q4H PRN IV SEVERE PAIN LEVEL 7-10 Last administered on 07/27/17 03:40; Admin Dose 2 MG; Start 07/24/17 at 15:00 Docusate Sodium 100 mg 100 mg Q12H PRN PO CONSTIPATION; Start 07/24/17 at 15: 00 Vancomycin HCl/ Dextrose/Water (Vancocin/D5W) 150 ml @ 75 mls/hr Q24H IVPB Last administered on 07/26/17 15:30; Admin Dose 75 MLS/HR; Start 07/25/17 at 15:30 Aspirin (Ecotrin) 325 mg DAILY PO Last administered on 07/27/17 08:57; Admin Dose 325 MG; Start 07/25/17 at 18:00 Pantoprazole (Protonix Tab) 40 mg DAILY@06 PO Last administered on 07/27/17 05 :11; Admin Dose 40 MG; Start 07/26/17 at 06:00 Clonidine (Catapres) 0.1 mg Q6H PRN PO SBP above 160 Last administered on 02:49; Admin Dose 0.1 MG; Start 07/27/17 at 03:00 Hydralazine HCl (Apresoline) 25 mg Q6H PRN PO SBP more than 160. Last administered on 07/27/17 06:07; Admin Dose 25 MG; Start 07/27/17 at 05:30 CAITY CRYSTAL MD Jul 27, 2017 14:56
[2017-07-27 14:59] LABS: BASOPHILS % 0.2 % (0.0-2.0); EOSINOPHILS # 0.3 10^3/ul (0.0-0.5); HEMATOCRIT 32.5 % (42.0-52.0); HEMOGLOBIN 10.9 g/dl (14.0-18.0); LYMPHOCYTES # 1.1 10^3/ul (0.8-2.9); LYMPHOCYTES % 12.8 % (15.0-51.0); MEAN CORPUSCULAR HEMOGLOBIN 30.4 pg (29.0-33.0); MEAN CORPUSCULAR HGB CONC 33.5 g/dl (32.0-37.0); MEAN CORPUSCULAR VOLUME 90.8 fl (82.0-101.0); MEAN PLATELET VOLUME 9.9 fl (7.4-10.4); MONOCYTE # 0.6 10^3/ul (0.3-0.9); MONOCYTES % 6.7 % (0.0-11.0); NEUTROPHIL # 6.7 10^3/ul (1.6-7.5); NEUTROPHILS % 76.8 % (39.0-77.0); PLATELET COUNT 145 10^3/UL (140-415); RED BLOOD COUNT 3.58 10^6/ul (4.70-6.10); RED CELL DISTRIBUTION WIDTH 13.6 % (11.5-14.5); WHITE BLOOD COUNT 8.7 10^3/ul (4.8-10.8)
[2017-07-27] MEDS: VANCOMYCIN 750 MG in DEXTROSE 5% 150 ML IVPB SCH (16:11)
[2017-07-27] MEDS: RIVAROXABAN 15 MG TABLET PO SCH (17:23)
--- NOTE | 2017-07-27 17:24 | PN ---
Date/Time of Note Date/Time of Note DATE: 07/27/17 TIME: 17:21 Assessment/Plan VTE Prophylaxis VTE Prophylaxis Intervention: SCD's Lines/Catheters IV [facility]from [facility]): Peripheral IV Urinary Cath still in place: No Assessment/Plan Chief Complaint/Hosp Course Patient is more awake, bilateral lower extremity edema significantly decreased. Assessment/Plan -Bilateral lower extremity cellulitis and ulceration. Continue vancomycin and Levaquin. Obtain wound care consult. Dr. Muller is following in infection disease consultation. -Bilateral lower extremities edema most likely secondary to cellulitis, ultrasound is negative for DVT, will obtain arterial Doppler to evaluate for possible arterial disease since patient has ulcers. -Hypertension -Congestive heart failure -BPH Further recommendations based on clinical course. Plan of care discussed with Dr. Melo. Problems: Exam/Review of Systems Vital Signs Vitals Vital Signs Date Time Temp Pulse Resp B/P Pulse Ox O2 Delivery O2 Flow Rate FiO2 07/27/17 14:00 98.0 75 16 120/69 97 07/26/17 08:00 Room Air Intake and Output 07/26/17 07/26/17 07/27/17 14:59 22:59 06:59 Intake Total 360 ml Output Total 600 ml Balance -240 ml Exam Constitutional: alert, oriented Respiratory: normal air movement Cardiovascular: nl pulses Gastrointestinal: non-tender, soft Extremities: edema, normal pulses, other (Erythema) Neurological: nl mental status Skin: other (Left lower extremity ulcer) Results Result Diagram: 07/27/17 1441 07/25/17 0423 Results 24 hrs Laboratory Tests Test 07/27/17 14:41 White Blood Count 8.7 # Red Blood Count 3.58 L Hemoglobin 10.9 L Hematocrit 32.5 L Mean Corpuscular Volume 90.8 Mean Corpuscular Hemoglobin 30.4 Mean Corpuscular Hemoglobin Concent 33.5 Red Cell Distribution Width 13.6 Platelet Count 145 Mean Platelet Volume 9.9 Neutrophils % 76.8 Lymphocytes % 12.8 L Monocytes % 6.7 Eosinophils % 3.0 Basophils % 0.2 Nucleated Red Blood Cells % 0.0 Neutrophils # 6.7 Lymphocytes # 1.1 Monocytes # 0.6 Eosinophils # 0.3 Basophils # 0.0 Nucleated Red Blood Cells # 0.0 Vancomycin Level Trough 6.4 L Medications Medications Current Medications Levofloxacin/ Dextrose (Levaquin 500mg/ D5W 100 ml (Pmx)) 100 ml @ 100 mls/hr Q24H IVPB Last administered on 07/27/17 14:51; Admin Dose 100 MLS/HR; Start 07/24/17 at 14:00 Ondansetron HCl (Zofran Inj) 4 mg Q6H PRN IV NAUSEA AND/OR VOMITING Last administered on 07/24/17 23:17; Admin Dose 4 MG; Start 07/24/17 at 15:00 Acetaminophen (Tylenol Tab) 650 mg Q6H PRN PO PAIN LEVEL 1-3 OR FEVER Last administered on 07/25/17 05:13; Admin Dose 650 MG; Start 07/24/17 at 15:00 Morphine Sulfate (morphine) 2 mg Q4H PRN IV SEVERE PAIN LEVEL 7-10 Last administered on 07/27/17 14:58; Admin Dose 2 MG; Start 07/24/17 at 15:00 Docusate Sodium (Colace) 100 mg Q12H PRN PO CONSTIPATION; Start 07/24/17 at 15 :00 Aspirin (Ecotrin) 325 mg DAILY PO Last administered on 07/27/17 08:57; Admin Dose 325 MG; Start 07/25/17 at 18:00 Pantoprazole (Protonix Tab) 40 mg DAILY@06 PO Last administered on 07/27/17 05 :11; Admin Dose 40 MG; Start 07/26/17 at 06:00 Clonidine (Catapres) 0.1 mg Q6H PRN PO SBP above 160 Last administered on 02:49; Admin Dose 0.1 MG; Start 07/27/17 at 03:00 Hydralazine HCl 25 mg 25 mg Q6H PRN PO SBP more than 160. Last administered on 07/27/17 06:07; Admin Dose 25 MG; Start 07/27/17 at 05:30 Vancomycin HCl (Vancocin) 100 ml @ 100 mls/hr Q12H IVPB ; Start 07/28/17 at 04: 00 ELIZABETH SOUZA Jul 27, 2017 17:24
[2017-07-27 20:38] VITALS: BP 149/70; RESP 16
[2017-07-28 03:05] VITALS: BP 136/77; RESP 18
[2017-07-28] MEDS: VANCOMYCIN 500MG/NS (PMX) 100 ML IVPB SCH ×2 (04:03→16:59)
[2017-07-28] MEDS: morphine 2 MG INJ IV PRN ×3 (04:03→18:08)
[2017-07-28 05:19] LABS: BASOPHILS % 0.3 % (0.0-2.0); EOSINOPHILS # 0.3 10^3/ul (0.0-0.5); EOSINOPHILS % 4.3 % (0.0-7.0); HEMATOCRIT 31.5 % (42.0-52.0); HEMOGLOBIN 10.6 g/dl (14.0-18.0); LYMPHOCYTES % 14.4 % (15.0-51.0); MEAN CORPUSCULAR HEMOGLOBIN 30.5 pg (29.0-33.0); MEAN CORPUSCULAR HGB CONC 33.7 g/dl (32.0-37.0); MEAN CORPUSCULAR VOLUME 90.5 fl (82.0-101.0); MEAN PLATELET VOLUME 10.4 fl (7.4-10.4); MONOCYTE # 0.6 10^3/ul (0.3-0.9); MONOCYTES % 8.1 % (0.0-11.0); NEUTROPHIL # 5.2 10^3/ul (1.6-7.5); NEUTROPHILS % 72.5 % (39.0-77.0); PLATELET COUNT 139 10^3/UL (140-415); RED BLOOD COUNT 3.48 10^6/ul (4.70-6.10); RED CELL DISTRIBUTION WIDTH 13.5 % (11.5-14.5); WHITE BLOOD COUNT 7.1 10^3/ul (4.8-10.8)
[2017-07-28] MEDS: PANTOPRAZOLE (EC) 40 MG TAB PO SCH (05:44)
[2017-07-28 06:01] LABS: CALCIUM 8.2 mg/dl (8.4-10.2); CREATININE 0.95 mg/dl (0.61-1.24); POTASSIUM 3.9 mmol/L (3.5-5.1)
[2017-07-28 06:04] LABS: CREATININE 0.95 mg/dl (0.61-1.24)
[2017-07-28 08:00] VITALS: BP 160/78; RESP 17
[2017-07-28] MEDS: ASPIRIN (EC) 325 MG TAB PO SCH (08:27)
--- NOTE | 2017-07-28 13:03 | PN ---
Date/Time of Note Date/Time of Note DATE: 07/28/17 TIME: 13:00 Assessment/Plan Lines/Catheters IV [facility]ter Type (from [facility]): Peripheral IV Urinary Cath still in place: No Assessment/Plan Assessment/Plan -Bilateral lower extremity cellulitis and ulceration. Continue vancomycin and Levaquin. Obtain wound care consult. Dr. Muller is following in infection disease consultation. -Bilateral lower extremities edema most likely secondary to cellulitis, ultrasound is negative for DVT, will obtain arterial Doppler to evaluate for possible arterial disease since patient has ulcers. -Hypertension -Congestive heart failure- bnp 3090 - per cardiology -BPH Further recommendations based on clinical course. Plan of care discussed with Dr. Melo. Subjective 24 Hr Interval Summary Respiratory: no complaints Cardiovascular: no complaints Gastrointestinal: no complaints Genitourinary: no complaints Skin: other, skin lesions Exam/Review of Systems Vital Signs Vitals Vital Signs Date Time Temp Pulse Resp B/P Pulse Ox O2 Delivery O2 Flow Rate FiO2 07/28/17 08:00 97.7 54 17 160/78 98 07/26/17 08:00 Room Air Intake and Output 07/27/17 07/27/17 07/28/17 14:59 22:59 06:59 Intake Total 740 ml 500 ml Output Total 600 ml Balance 740 ml -100 ml Exam Constitutional: alert Respiratory: diminished breath sounds, normal air movement Cardiovascular: nl pulses Gastrointestinal: non-tender, soft Extremities: edema, other Results Result Diagram: 07/28/17 0446 07/28/17 0446 Results 24 hrs Laboratory Tests Test 07/27/17 14:41 07/28/17 04:46 White Blood Count 8.7 # 7.1 Red Blood Count 3.58 L 3.48 L Hemoglobin 10.9 L 10.6 L Hematocrit 32.5 L 31.5 L Mean Corpuscular Volume 90.8 90.5 Mean Corpuscular Hemoglobin 30.4 30.5 Mean Corpuscular Hemoglobin Concent 33.5 33.7 Red Cell Distribution Width 13.6 13.5 Platelet Count 145 139 L Mean Platelet Volume 9.9 10.4 Neutrophils % 76.8 72.5 Lymphocytes % 12.8 L 14.4 L Monocytes % 6.7 8.1 Eosinophils % 3.0 4.3 Basophils % 0.2 0.3 Nucleated Red Blood Cells % 0.0 0.0 Neutrophils # 6.7 5.2 Lymphocytes # 1.1 1.0 Monocytes # 0.6 0.6 Eosinophils # 0.3 0.3 Basophils # 0.0 0.0 Nucleated Red Blood Cells # 0.0 0.0 Vancomycin Level Trough 6.4 L Sodium Level 139 Potassium Level 3.9 Chloride Level 101 Carbon Dioxide Level 32 H Anion Gap 10 Blood Urea Nitrogen 23 H Creatinine 0.95 Glucose Level 89 Calcium Level 8.2 L Medications Medications Current Medications Levofloxacin/ Dextrose (Levaquin 500mg/ D5W 100 ml (Pmx)) 100 ml @ 100 mls/hr Q24H IVPB Last administered on 07/27/17 14:51; Admin Dose 100 MLS/HR; Start 07/24/17 at 14:00 Ondansetron HCl (Zofran Inj) 4 mg Q6H PRN IV NAUSEA AND/OR VOMITING Last administered on 07/24/17 23:17; Admin Dose 4 MG; Start 07/24/17 at 15:00 Acetaminophen (Tylenol Tab) 650 mg Q6H PRN PO PAIN LEVEL 1-3 OR FEVER Last administered on 07/25/17 05:13; Admin Dose 650 MG; Start 07/24/17 at 15:00 Morphine Sulfate (morphine) 2 mg Q4H PRN IV SEVERE PAIN LEVEL 7-10 Last administered on 07/28/17 04:03; Admin Dose 2 MG; Start 07/24/17 at 15:00 Docusate Sodium (Colace) 100 mg Q12H PRN PO CONSTIPATION; Start 07/24/17 at 15 :00 Aspirin (Ecotrin) 325 mg DAILY PO Last administered on 07/28/17 08:27; Admin Dose 325 MG; Start 07/25/17 at 18:00 Pantoprazole (Protonix Tab) 40 mg DAILY@06 PO Last administered on 07/28/17 05 :44; Admin Dose 40 MG; Start 07/26/17 at 06:00 Clonidine (Catapres) 0.1 mg Q6H PRN PO SBP above 160 Last administered on 02:49; Admin Dose 0.1 MG; Start 07/27/17 at 03:00 Hydralazine HCl 25 mg 25 mg Q6H PRN PO SBP more than 160. Last administered on 12/1/17at 06:07; Admin Dose 25 MG; Start 07/27/17 at 05:30 Vancomycin HCl (Vancocin) 100 ml @ 100 mls/hr Q12H IVPB Last administered on 07/28/17t 04:03; Admin Dose 100 MLS/HR; Start 07/28/17 at 04:00 FLORA CAMARILLO Jul 28, 2017 13:03
[2017-07-28] MEDS: LEVOFLOXACIN 500MG/D5W (PMX) 100 ML IVPB SCH (13:07)
--- NOTE | 2017-07-28 13:34 | CONS ---
Date/Time of Note Date/Time of Note DATE: 07/28/17 TIME: 13:33 Assessment/Plan Assessment/Plan Chief Complaint/Hosp Course SUBJECTIVE: No acute events overnight. The patient is alert, eating lunch, looks comfortable, no fevers MICROBIOLOGY: Blood culture remains negative. Urine culture consistent with contaminant. DIAGNOSTICS: Chest x-ray on admission revealed no acute cardiopulmonary disease. CT of the brain showed no acute abnormalities. A bilateral lower extremities ultrasound was negative for DVT. ALLERGIES: NONE. ANTIMICROBIALS: 1. Vancomycin. 2. Levaquin. PHYSICAL EXAMINATION: GENERAL: This is a fragile, well-developed, elderly man who is alert, in no distress. HEENT: Head atraumatic, normocephalic. Sclerae anicteric. Buccal mucosa pink. NECK: Supple. CHEST: Rise symmetrical. Breath sounds clear. HEART: S1, S2. ABDOMEN: Soft. Bowel tones present. EXTREMITIES: Without edema. Patient has necrotic wounds on the back of his calves and feet. ASSESSMENT: 1. S/p systemic inflammatory response syndrome. 2. 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 3. Hypertension. 4. Congestive heart failure. 5. BPH. PLAN: Remains stable, continue antibiotics, continue local wound care and PT DW staff Problems: Consultation Date/Type/Reason Admit Date/Time Jul 25, 2017 at 09:26 Type of Consultation: ID Exam/Review of Systems Vital Signs Vitals Vital Signs Date Time Temp Pulse Resp B/P Pulse Ox O2 Delivery O2 Flow Rate FiO2 07/28/17 08:00 97.7 54 17 160/78 98 07/26/17 08:00 Room Air Intake and Output 07/27/17 07/27/17 07/28/17 14:59 22:59 06:59 Intake Total 740 ml 500 ml Output Total 600 ml Balance 740 ml -100 ml Results Result Diagram: 07/28/17 0446 07/28/17 0446 Results 24 hrs Laboratory Tests Test 07/27/17 14:41 07/28/17 04:46 White Blood Count 8.7 # 7.1 Red Blood Count 3.58 L 3.48 L Hemoglobin 10.9 L 10.6 L Hematocrit 32.5 L 31.5 L Mean Corpuscular Volume 90.8 90.5 Mean Corpuscular Hemoglobin 30.4 30.5 Mean Corpuscular Hemoglobin Concent 33.5 33.7 Red Cell Distribution Width 13.6 13.5 Platelet Count 145 139 L Mean Platelet Volume 9.9 10.4 Neutrophils % 76.8 72.5 Lymphocytes % 12.8 L 14.4 L Monocytes % 6.7 8.1 Eosinophils % 3.0 4.3 Basophils % 0.2 0.3 Nucleated Red Blood Cells % 0.0 0.0 Neutrophils # 6.7 5.2 Lymphocytes # 1.1 1.0 Monocytes # 0.6 0.6 Eosinophils # 0.3 0.3 Basophils # 0.0 0.0 Nucleated Red Blood Cells # 0.0 0.0 Vancomycin Level Trough 6.4 L Sodium Level 139 Potassium Level 3.9 Chloride Level 101 Carbon Dioxide Level 32 H Anion Gap 10 Blood Urea Nitrogen 23 H Creatinine 0.95 Glucose Level 89 Calcium Level 8.2 L Medications Medications Current Medications Levofloxacin/ Dextrose (Levaquin 500mg/ D5W 100 ml (Pmx)) 100 ml @ 100 mls/hr Q24H IVPB Last administered on 07/28/17 13:07; Admin Dose 100 MLS/HR; Start 07/24/17 at 14:00 Ondansetron HCl (Zofran Inj) 4 mg Q6H PRN IV NAUSEA AND/OR VOMITING Last administered on 07/24/17 23:17; Admin Dose 4 MG; Start 07/24/17 at 15:00 Acetaminophen (Tylenol Tab) 650 mg Q6H PRN PO PAIN LEVEL 1-3 OR FEVER Last administered on 07/25/17 05:13; Admin Dose 650 MG; Start 07/24/17 at 15:00 Morphine Sulfate (morphine) 2 mg Q4H PRN IV SEVERE PAIN LEVEL 7-10 Last administered on 07/28/17 13:09; Admin Dose 2 MG; Start 07/24/17 at 15:00 Docusate Sodium (Colace) 100 mg Q12H PRN PO CONSTIPATION; Start 07/24/17 at 15 :00 Aspirin (Ecotrin) 325 mg DAILY PO Last administered on 07/28/17 08:27; Admin Dose 325 MG; Start 07/25/17 at 18:00 Pantoprazole (Protonix Tab) 40 mg DAILY@06 PO Last administered on 07/28/17 05 :44; Admin Dose 40 MG; Start 07/26/17 at 06:00 Clonidine (Catapres) 0.1 mg Q6H PRN PO SBP above 160 Last administered on 02:49; Admin Dose 0.1 MG; Start 07/27/17 at 03:00 Hydralazine HCl 25 mg 25 mg Q6H PRN PO SBP more than 160. Last administered on 07/27/17 06:07; Admin Dose 25 MG; Start 07/27/17 at 05:30 Vancomycin HCl (Vancocin) 100 ml @ 100 mls/hr Q12H IVPB Last administered on 07/28/17 04:03; Admin Dose 100 MLS/HR; Start 07/28/17 at 04:00 NVOA OLIVIER NP Jul 28, 2017 13:34
[2017-07-28 14:00] VITALS: BP 137/78; RESP 19
[2017-07-28] MEDS: RIVAROXABAN 15 MG TABLET PO SCH (17:00)
[2017-07-28 20:00] VITALS: BP_SYST 173; BP_DIAS 53; BP_DIAS 85; PULSE 68; RESP 19
[2017-07-28 22:02] VITALS: BP 134/68; PULSE 66
[2017-07-29 02:00] VITALS: BP 135/76; RESP 19
[2017-07-29] MEDS: VANCOMYCIN 500MG/NS (PMX) 100 ML IVPB SCH ×2 (03:14→16:59)
[2017-07-29] MEDS: ONDANSETRON 4 MG INJ IV PRN (04:35)
[2017-07-29] MEDS: PANTOPRAZOLE (EC) 40 MG TAB PO SCH (05:23)
[2017-07-29 08:01] VITALS: BP 145/67; RESP 19
[2017-07-29] MEDS: ASPIRIN (EC) 325 MG TAB PO SCH (08:57)
[2017-07-29 14:00] VITALS: BP_SYST 127; BP_SYST 132; BP_DIAS 70; BP_DIAS 71; RESP 18
[2017-07-29] MEDS: LEVOFLOXACIN 500MG/D5W (PMX) 100 ML IVPB SCH (14:24)
--- NOTE | 2017-07-29 15:29 | PN ---
Date/Time of Note Date/Time of Note DATE: 07/29/17 TIME: 15:29 Assessment/Plan Lines/Catheters IV Catheter Type (from Nrsg): Peripheral IV Urinary Cath still in place: No Assessment/Plan Assessment/Plan -Bilateral lower extremity cellulitis and ulceration. Continue vancomycin and Levaquin. Obtain wound care consult. Dr. Muller is following in infection disease consultation. -Bilateral lower extremities edema most likely secondary to cellulitis, ultrasound is negative for DVT, will obtain arterial Doppler to evaluate for possible arterial disease since patient has ulcers. -Hypertension -Congestive heart failure- bnp [id number] - per cardiology -BPH Further recommendations based on clinical course. Plan of care discussed with Dr. Melo. Subjective 24 Hr Interval Summary Free Text/Dictation sleeping, seem scomfortasble, hugo any c omplaints, no new issues reported overnigth Exam/Review of Systems Vital Signs Vitals Vital Signs Date Time Temp Pulse Resp B/P Pulse Ox O2 Delivery O2 Flow Rate FiO2 07/29/17 08:01 98.2 65 19 145/67 96 07/28/17 20:00 Room Air Intake and Output 07/28/17 07/28/17 07/29/17 15:00 23:00 07:00 Intake Total 100 ml 640 ml 400 ml Output Total 350 ml 450 ml Balance 100 ml 290 ml -50 ml Results Result Diagram: 07/28/17 0446 07/28/17 0446 Medications Medications Current Medications Levofloxacin/ Dextrose (Levaquin 500mg/ D5W 100 ml (Pmx)) 100 ml @ 100 mls/hr Q24H IVPB Last administered on 07/29/17 14:24; Admin Dose 100 MLS/HR; Start 07/24/17 at 14:00 Ondansetron HCl (Zofran Inj) 4 mg Q6H PRN IV NAUSEA AND/OR VOMITING Last administered on 07/29/17 04:35; Admin Dose 4 MG; Start 07/24/17 at 15:00 Acetaminophen (Tylenol Tab) 650 mg Q6H PRN PO PAIN LEVEL 1-3 OR FEVER Last administered on 07/25/17 05:13; Admin Dose 650 MG; Start 07/24/17 at 15:00 Morphine Sulfate (morphine) 2 mg Q4H PRN IV SEVERE PAIN LEVEL 7-10 Last administered on 07/28/17 18:08; Admin Dose 2 MG; Start 07/24/17 at 15:00 Docusate Sodium (Colace) 100 mg Q12H PRN PO CONSTIPATION; Start 07/24/17 at 15 :00 Aspirin (Ecotrin) 325 mg DAILY PO Last administered on 07/29/17 08:57; Admin Dose 325 MG; Start 07/25/17 at 18:00 Pantoprazole (Protonix Tab) 40 mg DAILY@06 PO Last administered on 07/29/17 05 :23; Admin Dose 40 MG; Start 07/26/17 at 06:00 Clonidine (Catapres) 0.1 mg Q6H PRN PO SBP above 160 Last administered on 02:49; Admin Dose 0.1 MG; Start 07/27/17 at 03:00 Hydralazine HCl 25 mg 25 mg Q6H PRN PO SBP more than 160. Last administered on 07/28/17 20:28; Admin Dose 25 MG; Start 07/27/17 at 05:30 Vancomycin HCl (Vancocin) 100 ml @ 100 mls/hr Q12H IVPB Last administered on 07/29/17 03:14; Admin Dose 100 MLS/HR; Start 07/28/17 at 04:00 FLORA CAMARILLO Jul 29, 2017 15:29
[2017-07-29] MEDS: RIVAROXABAN 15 MG TABLET PO SCH (17:00)
[2017-07-29] MEDS: DOCUSATE SODIUM 100 MG CAP PO PRN (17:08)
--- NOTE | 2017-07-29 20:12 | CONS ---
Date/Time of Note Date/Time of Note DATE: 07/29/17 TIME: 20:11 Assessment/Plan Assessment/Plan Chief Complaint/Hosp Course SUBJECTIVE: No acute events overnight. The patient is alert, looks comfortable , no fevers MICROBIOLOGY: Blood culture remains negative. Urine culture consistent with contaminant. DIAGNOSTICS: Chest x-ray on admission revealed no acute cardiopulmonary disease. CT of the brain showed no acute abnormalities. A bilateral lower extremities ultrasound was negative for DVT. ALLERGIES: NONE. ANTIMICROBIALS: 1. Vancomycin. 2. Levaquin. PHYSICAL EXAMINATION: GENERAL: This is a fragile, well-developed, elderly man who is alert, in no distress. HEENT: Head atraumatic, normocephalic. Sclerae anicteric. Buccal mucosa pink. NECK: Supple. CHEST: Rise symmetrical. Breath sounds clear. HEART: S1, S2. ABDOMEN: Soft. Bowel tones present. EXTREMITIES: Without edema. Patient has necrotic wounds on the back of his calves and feet. ASSESSMENT: 1. S/p systemic inflammatory response syndrome. 2. 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 3. Hypertension. 4. Congestive heart failure. 5. BPH. PLAN: Remains stable, change abx to oral Doxycycline, continue local wound care , off load, PT DW staff Problems: Consultation Date/Type/Reason Admit Date/Time Jul 25, 2017 at 09:26 Type of Consultation: ID Exam/Review of Systems Vital Signs Vitals Vital Signs Date Time Temp Pulse Resp B/P Pulse Ox O2 Delivery O2 Flow Rate FiO2 07/29/17 14:00 98.4 74 18 132/71 98 07/28/17 20:00 Room Air Intake and Output 07/28/17 07/28/17 07/29/17 15:00 23:00 07:00 Intake Total 100 ml 640 ml 400 ml Output Total 350 ml 450 ml Balance 100 ml 290 ml -50 ml Results Result Diagram: 07/28/17 0446 07/28/17 0446 Results 24 hrs Laboratory Tests Test 07/29/17 15:34 Vancomycin Level Trough 11.3 Medications Medications Current Medications Levofloxacin/ Dextrose (Levaquin 500mg/ D5W 100 ml (Pmx)) 100 ml @ 100 mls/hr Q24H IVPB Last administered on 07/29/17t 14:24; Admin Dose 100 MLS/HR; Start 07/24/17 at 14:00 Ondansetron HCl (Zofran Inj) 4 mg Q6H PRN IV NAUSEA AND/OR VOMITING Last administered on 07/29/17 04:35; Admin Dose 4 MG; Start 07/24/17 at 15:00 Acetaminophen (Tylenol Tab) 650 mg Q6H PRN PO PAIN LEVEL 1-3 OR FEVER Last administered on 07/25/17 05:13; Admin Dose 650 MG; Start 07/24/17 at 15:00 Morphine Sulfate (morphine) 2 mg Q4H PRN IV SEVERE PAIN LEVEL 7-10 Last administered on 07/28/17 18:08; Admin Dose 2 MG; Start 07/24/17 at 15:00 Docusate Sodium (Colace) 100 mg Q12H PRN PO CONSTIPATION Last administered on 07/29/17 17:08; Admin Dose 100 MG; Start 07/24/17 at 15:00 Aspirin (Ecotrin) 325 mg DAILY PO Last administered on 07/29/17 08:57; Admin Dose 325 MG; Start 07/25/17 at 18:00 Pantoprazole (Protonix Tab) 40 mg DAILY@06 PO Last administered on 07/29/17 05 :23; Admin Dose 40 MG; Start 07/26/17 at 06:00 Clonidine (Catapres) 0.1 mg Q6H PRN PO SBP above 160 Last administered on 02:49; Admin Dose 0.1 MG; Start 07/27/17 at 03:00 Hydralazine HCl 25 mg 25 mg Q6H PRN PO SBP more than 160. Last administered on 07/28/17 20:28; Admin Dose 25 MG; Start 07/27/17 at 05:30 Vancomycin HCl (Vancocin) 100 ml @ 100 mls/hr Q12H IVPB Last administered on 07/29/17 16:59; Admin Dose 100 MLS/HR; Start 07/28/17 at 04:00 NOVA OLIVIER NP Jul 29, 2017 20:12
[2017-07-29 20:56] VITALS: BP 128/66; RESP 20
[2017-07-30] MEDS: DOXYCYCLINE 100 MG TAB PO SCH ×3 (01:00→20:13)
[2017-07-30 02:20] VITALS: BP 150/86; RESP 21
[2017-07-30] MEDS: DOCUSATE SODIUM 100 MG CAP PO PRN (05:29)
[2017-07-30] MEDS: PANTOPRAZOLE (EC) 40 MG TAB PO SCH (05:29)
[2017-07-30 05:35] LABS: BASOPHILS % 0.6 % (0.0-2.0); EOSINOPHILS # 0.3 10^3/ul (0.0-0.5); EOSINOPHILS % 3.7 % (0.0-7.0); HEMATOCRIT 31.4 % (42.0-52.0); HEMOGLOBIN 10.5 g/dl (14.0-18.0); LYMPHOCYTES % 14.8 % (15.0-51.0); MEAN CORPUSCULAR HEMOGLOBIN 30.4 pg (29.0-33.0); MEAN CORPUSCULAR HGB CONC 33.4 g/dl (32.0-37.0); MEAN PLATELET VOLUME 10.1 fl (7.4-10.4); MONOCYTE # 0.7 10^3/ul (0.3-0.9); MONOCYTES % 10.2 % (0.0-11.0); NEUTROPHIL # 4.8 10^3/ul (1.6-7.5); NEUTROPHILS % 70.3 % (39.0-77.0); PLATELET COUNT 149 10^3/UL (140-415); RED BLOOD COUNT 3.45 10^6/ul (4.70-6.10); RED CELL DISTRIBUTION WIDTH 13.7 % (11.5-14.5); WHITE BLOOD COUNT 6.8 10^3/ul (4.8-10.8)
[2017-07-30 06:04] LABS: CALCIUM 8.1 mg/dl (8.4-10.2); CREATININE 0.94 mg/dl (0.61-1.24); POTASSIUM 4.1 mmol/L (3.5-5.1)
[2017-07-30 07:59] VITALS: BP 161/72; PULSE 66; RESP 18
[2017-07-30] MEDS: ASPIRIN (EC) 325 MG TAB PO SCH (09:06)
--- NOTE | 2017-07-30 14:50 | CONS ---
Date/Time of Note Date/Time of Note DATE: 07/30/17 TIME: 14:50 Assessment/Plan Assessment/Plan Chief Complaint/Hosp Course SUBJECTIVE: No acute events overnight. The patient is alert, looks comfortable , no fevers MICROBIOLOGY: Blood culture remains negative. Urine culture consistent with contaminant. DIAGNOSTICS: Chest x-ray on admission revealed no acute cardiopulmonary disease. CT of the brain showed no acute abnormalities. A bilateral lower extremities ultrasound was negative for DVT. ALLERGIES: NONE. ANTIMICROBIALS: Doxycycline PHYSICAL EXAMINATION: GENERAL: This is a fragile, well-developed, elderly man who is alert, in no distress. HEENT: Head atraumatic, normocephalic. Sclerae anicteric. Buccal mucosa pink. NECK: Supple. CHEST: Rise symmetrical. Breath sounds clear. HEART: S1, S2. ABDOMEN: Soft. Bowel tones present. EXTREMITIES: Without edema. Patient has necrotic wounds on the back of his calves and feet. ASSESSMENT: 1. S/p systemic inflammatory response syndrome. 2. 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 3. Hypertension. 4. Congestive heart failure. 5. BPH. PLAN: Remains stable, continue local wound care, off load, PT DW staff Problems: Consultation Date/Type/Reason Admit Date/Time Jul 25, 2017 at 09:26 Type of Consultation: ID Exam/Review of Systems Vital Signs Vitals Vital Signs Date Time Temp Pulse Resp B/P Pulse Ox O2 Delivery O2 Flow Rate FiO2 07/30/17 07:59 98.1 66 18 161/72 98 Room Air Intake and Output 07/29/17 07/29/17 07/30/17 15:00 23:00 07:00 Intake Total 940 ml 450 ml Output Total 500 ml 300 ml Balance 440 ml 150 ml Results Result Diagram: 07/30/17 0444 07/30/17 0444 Results 24 hrs Laboratory Tests Test 07/29/17 15:34 07/30/17 04:44 Vancomycin Level Trough 11.3 White Blood Count 6.8 Red Blood Count 3.45 L Hemoglobin 10.5 L Hematocrit 31.4 L Mean Corpuscular Volume 91.0 Mean Corpuscular Hemoglobin 30.4 Mean Corpuscular Hemoglobin Concent 33.4 Red Cell Distribution Width 13.7 Platelet Count 149 Mean Platelet Volume 10.1 Neutrophils % 70.3 Lymphocytes % 14.8 L Monocytes % 10.2 Eosinophils % 3.7 Basophils % 0.6 Nucleated Red Blood Cells % 0.0 Neutrophils # 4.8 Lymphocytes # 1.0 Monocytes # 0.7 Eosinophils # 0.3 Basophils # 0.0 Nucleated Red Blood Cells # 0.0 Sodium Level 140 Potassium Level 4.1 Chloride Level 104 Carbon Dioxide Level 30 Anion Gap 10 Blood Urea Nitrogen 20 Creatinine 0.94 Glucose Level 97 Calcium Level 8.1 L Medications Medications Current Medications Ondansetron HCl (Zofran Inj) 4 mg Q6H PRN IV NAUSEA AND/OR VOMITING Last administered on 07/29/17 04:35; Admin Dose 4 MG; Start 07/24/17 at 15:00 Acetaminophen (Tylenol Tab) 650 mg Q6H PRN PO PAIN LEVEL 1-3 OR FEVER Last administered on 07/25/17 05:13; Admin Dose 650 MG; Start 07/24/17 at 15:00 Morphine Sulfate (morphine) 2 mg Q4H PRN IV SEVERE PAIN LEVEL 7-10 Last administered on 07/28/17 18:08; Admin Dose 2 MG; Start 07/24/17 at 15:00 Docusate Sodium (Colace) 100 mg Q12H PRN PO CONSTIPATION Last administered on 07/30/17 05:29; Admin Dose 100 MG; Start 07/24/17 at 15:00 Aspirin (Ecotrin) 325 mg DAILY PO Last administered on 07/30/17 09:06; Admin Dose 325 MG; Start 07/25/17 at 18:00 Pantoprazole (Protonix Tab) 40 mg DAILY@06 PO Last administered on 07/30/17 05 :29; Admin Dose 40 MG; Start 07/26/17 at 06:00 Clonidine (Catapres) 0.1 mg Q6H PRN PO SBP above 160 Last administered on 02:49; Admin Dose 0.1 MG; Start 07/27/17 at 03:00 Hydralazine HCl (Apresoline) 25 mg Q6H PRN PO SBP more than 160. Last administered on 07/28/17 20:28; Admin Dose 25 MG; Start 07/27/17 at 05:30 Doxycycline Hyclate (Vibramycin) 100 mg BID PO Last administered on 07/30/17 09:06; Admin Dose 100 MG; Start 07/29/17 at 21:00 NOVA OLIVIER NP Jul 30, 2017 14:50
[2017-07-30 15:01] VITALS: BP 142/67; PULSE 69; RESP 14
--- NOTE | 2017-07-30 15:20 | CONS ---
Date/Time of Note Date/Time of Note DATE: 07/30/17 TIME: 15:15 Assessment/Plan Assessment/Plan Additional Assessment/Plan Cellulitis with lower extremity skin breakdown Mild acute decompensated diastolic congestive heart failure Atrial fibrillation Preserved ejection fraction HTN -Blood pressure on the higher end, would start SANDIE inhibitor and titrate as blood pressure and renal function permits. Patient on Xarelto and full dose aspirin, will decrease aspirin to 81 mg daily. BNP is elevated with coarse breath sounds on lung examination, will check chest x-ray, add low-dose Lasix. Consultation Date/Type/Reason Admit Date/Time Jul 25, 2017 at 09:26 Initial Consult Date Type of Consultation: cv 24 HR Interval Summary Free Text/Dictation Patient denies any chest pain at the current time, palpitations or shortness of breath. Legs are feeling better Exam/Review of Systems Vital Signs Vitals Vital Signs Date Time Temp Pulse Resp B/P Pulse Ox O2 Delivery O2 Flow Rate FiO2 07/30/17 15:01 97.7 69 14 142/67 98 07/30/17 07:59 Room Air Intake and Output 07/29/17 07/29/17 07/30/17 15:00 23:00 07:00 Intake Total 940 ml 450 ml Output Total 500 ml 300 ml Balance 440 ml 150 ml Exam No apparent distress Constitutional: alert, oriented Head: normocephalic Respiratory: other (Coarse breath sounds bilaterally, no wheezing) Cardiovascular: irregular rhythm (S1-S2 heard) Gastrointestinal: bowel sounds, non-tender, soft Extremities: other (Bandages both extremities, trivial edema) Results Result Diagram: 07/30/17 0444 07/30/17 0444 Results 24 hrs Laboratory Tests Test 07/29/17 15:34 07/30/17 04:44 Vancomycin Level Trough 11.3 White Blood Count 6.8 Red Blood Count 3.45 L Hemoglobin 10.5 L Hematocrit 31.4 L Mean Corpuscular Volume 91.0 Mean Corpuscular Hemoglobin 30.4 Mean Corpuscular Hemoglobin Concent 33.4 Red Cell Distribution Width 13.7 Platelet Count 149 Mean Platelet Volume 10.1 Neutrophils % 70.3 Lymphocytes % 14.8 L Monocytes % 10.2 Eosinophils % 3.7 Basophils % 0.6 Nucleated Red Blood Cells % 0.0 Neutrophils # 4.8 Lymphocytes # 1.0 Monocytes # 0.7 Eosinophils # 0.3 Basophils # 0.0 Nucleated Red Blood Cells # 0.0 Sodium Level 140 Potassium Level 4.1 Chloride Level 104 Carbon Dioxide Level 30 Anion Gap 10 Blood Urea Nitrogen 20 Creatinine 0.94 Glucose Level 97 Calcium Level 8.1 L Medications Medications Current Medications Ondansetron HCl (Zofran Inj) 4 mg Q6H PRN IV NAUSEA AND/OR VOMITING Last administered on 07/29/17 04:35; Admin Dose 4 MG; Start 07/24/17 at 15:00 Acetaminophen (Tylenol Tab) 650 mg Q6H PRN PO PAIN LEVEL 1-3 OR FEVER Last administered on 07/25/17 05:13; Admin Dose 650 MG; Start 07/24/17 at 15:00 Morphine Sulfate (morphine) 2 mg Q4H PRN IV SEVERE PAIN LEVEL 7-10 Last administered on 07/28/17 18:08; Admin Dose 2 MG; Start 07/24/17 at 15:00 Docusate Sodium (Colace) 100 mg Q12H PRN PO CONSTIPATION Last administered on 07/30/17 05:29; Admin Dose 100 MG; Start 07/24/17 at 15:00 Aspirin (Ecotrin) 325 mg DAILY PO Last administered on 07/30/17 09:06; Admin Dose 325 MG; Start 07/25/17 at 18:00 Pantoprazole (Protonix Tab) 40 mg DAILY@06 PO Last administered on 07/30/17 05 :29; Admin Dose 40 MG; Start 07/26/17 at 06:00 Clonidine (Catapres) 0.1 mg Q6H PRN PO SBP above 160 Last administered on 02:49; Admin Dose 0.1 MG; Start 07/27/17 at 03:00 Hydralazine HCl (Apresoline) 25 mg Q6H PRN PO SBP more than 160. Last administered on 07/28/17 20:28; Admin Dose 25 MG; Start 07/27/17 at 05:30 Doxycycline Hyclate (Vibramycin) 100 mg BID PO Last administered on 07/30/17 09:06; Admin Dose 100 MG; Start 07/29/17 at 21:00 Chester Gomez DO Jul 30, 2017 15:20
[2017-07-30] MEDS: FUROSEMIDE 20 MG TAB PO SCH (16:50)
[2017-07-30] MEDS: RIVAROXABAN 15 MG TABLET PO SCH (16:50)
--- NOTE | 2017-07-30 17:41 | PN ---
Date/Time of Note Date/Time of Note DATE: 07/30/17 TIME: 17:34 Assessment/Plan VTE Prophylaxis VTE Prophylaxis Intervention: other Lines/Catheters IV C[facility]ter Type (from [facility] Peripheral IV Urinary Cath still in place: No Assessment/Plan Chief Complaint/Hosp Course Patient complains of constipation, start patient on bowel regimen Assessment/Plan -Bilateral lower extremity colitis with ulcers. S/p treatment with antibiotics continue current wound care. Dr. Muller is following in infection disease consultation. -Bilateral lower extremities edema secondary to CHF, resolving. -Hypertension, continue lisinopril. -Diastolic congestive heart failure preserved ejection fraction, continue gentle diuresis. Dr. Gomez is following in cardiology consultation -Atrial fibrillation, continue Xarelto -BPH Further recommendations based on clinical course. Plan of care discussed with Dr. Melo. Problems: Exam/Review of Systems Vital Signs Vitals Vital Signs Date Time Temp Pulse Resp B/P Pulse Ox O2 Delivery O2 Flow Rate FiO2 07/30/17 15:01 97.7 69 14 142/67 98 07/30/17 07:59 Room Air Intake and Output 07/29/17 07/29/17 07/30/17 15:00 23:00 07:00 Intake Total 940 ml 450 ml Output Total 500 ml 300 ml Balance 440 ml 150 ml Exam Constitutional: alert, oriented Respiratory: normal air movement Cardiovascular: nl pulses Gastrointestinal: non-tender, soft Extremities: edema, normal pulses, other (Erythema) Neurological: nl mental status Skin: other (Left lower extremity ulcer) Results Result Diagram: 07/30/17 0444 07/30/17 0444 Results 24 hrs Laboratory Tests Test 07/30/17 04:44 White Blood Count 6.8 Red Blood Count 3.45 L Hemoglobin 10.5 L Hematocrit 31.4 L Mean Corpuscular Volume 91.0 Mean Corpuscular Hemoglobin 30.4 Mean Corpuscular Hemoglobin Concent 33.4 Red Cell Distribution Width 13.7 Platelet Count 149 Mean Platelet Volume 10.1 Neutrophils % 70.3 Lymphocytes % 14.8 L Monocytes % 10.2 Eosinophils % 3.7 Basophils % 0.6 Nucleated Red Blood Cells % 0.0 Neutrophils # 4.8 Lymphocytes # 1.0 Monocytes # 0.7 Eosinophils # 0.3 Basophils # 0.0 Nucleated Red Blood Cells # 0.0 Sodium Level 140 Potassium Level 4.1 Chloride Level 104 Carbon Dioxide Level 30 Anion Gap 10 Blood Urea Nitrogen 20 Creatinine 0.94 Glucose Level 97 Calcium Level 8.1 L Medications Medications Current Medications Ondansetron HCl (Zofran Inj) 4 mg Q6H PRN IV NAUSEA AND/OR VOMITING Last administered on 07/29/17 04:35; Admin Dose 4 MG; Start 07/24/17 at 15:00 Acetaminophen (Tylenol Tab) 650 mg Q6H PRN PO PAIN LEVEL 1-3 OR FEVER Last administered on 07/25/17 05:13; Admin Dose 650 MG; Start 07/24/17 at 15:00 Morphine Sulfate (morphine) 2 mg Q4H PRN IV SEVERE PAIN LEVEL 7-10 Last administered on 07/28/17 18:08; Admin Dose 2 MG; Start 07/24/17 at 15:00 Docusate Sodium (Colace) 100 mg Q12H PRN PO CONSTIPATION Last administered on 07/30/17 05:29; Admin Dose 100 MG; Start 07/24/17 at 15:00 Pantoprazole (Protonix Tab) 40 mg DAILY@06 PO Last administered on 07/30/17 05 :29; Admin Dose 40 MG; Start 07/26/17 at 06:00 Clonidine (Catapres) 0.1 mg Q6H PRN PO SBP above 160 Last administered on 02:49; Admin Dose 0.1 MG; Start 07/27/17 at 03:00 Hydralazine HCl (Apresoline) 25 mg Q6H PRN PO SBP more than 160. Last administered on 07/28/17 20:28; Admin Dose 25 MG; Start 07/27/17 at 05:30 Doxycycline Hyclate (Vibramycin) 100 mg BID PO Last administered on 07/30/17 09:06; Admin Dose 100 MG; Start 07/29/17 at 21:00 Aspirin (Ecotrin) 81 mg DAILY PO ; Start 07/31/17 at 09:00 Furosemide (Lasix) 20 mg DAILY PO Last administered on 07/30/17 16:50; Admin Dose 20 MG; Start 07/30/17 at 15:30 Lisinopril (Zestril) 2.5 mg DAILY PO ; Start 07/31/17 at 09:00 ELIZABETH SOUZA Jul 30, 2017 17:41
[2017-07-30] MEDS ORDERED: POLYETHYLENE GLYCOL 17 GM PACKET PO PRN (20:00)
[2017-07-30] MEDS ORDERED: POLYETHYLENE GLYCOL 17 GM PACKET PO ONE (20:00)
[2017-07-30 20:26] VITALS: BP 172/71; RESP 20
[2017-07-30 21:00] VITALS: BP 149/68
[2017-07-31] VITALS (8 sets, daily range): BP systolic 107–191; BP diastolic 55–79; PULSE 61–82; RESP 17–20
[2017-07-31] MEDS: PANTOPRAZOLE (EC) 40 MG TAB PO SCH (05:25)
[2017-07-31 06:07] LABS: BASOPHILS % 0.6 % (0.0-2.0); EOSINOPHILS # 0.3 10^3/ul (0.0-0.5); EOSINOPHILS % 4.6 % (0.0-7.0); HEMATOCRIT 32.6 % (42.0-52.0); HEMOGLOBIN 10.9 g/dl (14.0-18.0); LYMPHOCYTES # 1.3 10^3/ul (0.8-2.9); LYMPHOCYTES % 20.3 % (15.0-51.0); MEAN CORPUSCULAR HEMOGLOBIN 30.3 pg (29.0-33.0); MEAN CORPUSCULAR HGB CONC 33.4 g/dl (32.0-37.0); MEAN CORPUSCULAR VOLUME 90.6 fl (82.0-101.0); MEAN PLATELET VOLUME 9.9 fl (7.4-10.4); MONOCYTE # 0.6 10^3/ul (0.3-0.9); MONOCYTES % 9.4 % (0.0-11.0); NEUTROPHIL # 4.1 10^3/ul (1.6-7.5); NEUTROPHILS % 64.6 % (39.0-77.0); PLATELET COUNT 153 10^3/UL (140-415); RED CELL DISTRIBUTION WIDTH 13.7 % (11.5-14.5); WHITE BLOOD COUNT 6.3 10^3/ul (4.8-10.8)
[2017-07-31 07:04] LABS: CREATININE 0.84 mg/dl (0.61-1.24); POTASSIUM 4.1 mmol/L (3.5-5.1)
[2017-07-31] MEDS: DOXYCYCLINE 100 MG TAB PO SCH ×2 (08:06→21:15)
[2017-07-31] MEDS: ASPIRIN (EC) 325 MG TAB PO SCH (08:06)
[2017-07-31] MEDS: FUROSEMIDE 20 MG TAB PO SCH (08:06)
[2017-07-31] MEDS ORDERED: LISINOPRIL 5 MG TAB PO SCH (09:00)
--- NOTE | 2017-07-31 09:20 | RADRPT ---
PROCEDURE: XR Chest. CLINICAL INDICATION: Congestive heart failure. . TECHNIQUE: Single frontal chest x-ray. COMPARISON: [place] 07/24/2017 FINDINGS: Cardiomegaly with increased perihilar interstitial prominence is noted. There is left basilar discoi d atelectasis. There are no alveolar infiltrates or effusions. .. Calcific atherosclerosis of the aorta is present.. The osseous structures are intact. IMPRESSION: Cardiomegaly with increased perihilar interstitial prominence. Increased left basilar discoid atelectasis.. RPTAT: GG .Justo Santamaria MD, Date Time Electronically viewed and signed by .Justo Santmaaria MD, on 07/31/2017 09:19 .L/
[2017-07-31] MEDS ORDERED: LISINOPRIL 5 MG TAB PO ONE (11:07)
--- NOTE | 2017-07-31 11:09 | CONS ---
Date/Time of Note Date/Time of Note DATE: 07/31/17 TIME: 11:06 Assessment/Plan Assessment/Plan Additional Assessment/Plan Cellulitis with lower extremity skin breakdown Acute decompensated diastolic congestive heart failure Atrial fibrillation Preserved ejection fraction HTN -Chest x-ray with increased pulmonary vascular congestion. Would give 1 dose of IV Lasix today and increase p.o. Lasix. Blood pressure remains elevated, would increase dose of SANDIE inhibitor. Consultation Date/Type/Reason Admit Date/Time Jul 25, 2017 at 09:26 Type of Consultation: cv 24 HR Interval Summary Free Text/Dictation Denies chest pain, palpitations Exam/Review of Systems Vital Signs Vitals Vital Signs Date Time Temp Pulse Resp B/P Pulse Ox O2 Delivery O2 Flow Rate FiO2 07/31/17 09:25 63 191/74 07/31/17 07:33 97.7 17 96 07/30/17 07:59 Room Air Intake and Output 07/30/17 07/30/17 07/31/17 15:00 23:00 07:00 Intake Total 900 ml 480 ml Output Total 600 ml 500 ml Balance 300 ml -20 ml Exam No apparent distress Constitutional: alert, frail, oriented Head: normocephalic Respiratory: other (Coarse breath sounds bilaterally, no wheezing) Cardiovascular: irregular rhythm (S1-S2 heard) Gastrointestinal: bowel sounds, non-tender, soft Extremities: edema (Bandages lower extremities) Results Result Diagram: 07/31/17 0508 07/31/17 0508 Results 24 hrs Laboratory Tests Test 07/31/17 05:08 White Blood Count 6.3 Red Blood Count 3.60 L Hemoglobin 10.9 L Hematocrit 32.6 L Mean Corpuscular Volume 90.6 Mean Corpuscular Hemoglobin 30.3 Mean Corpuscular Hemoglobin Concent 33.4 Red Cell Distribution Width 13.7 Platelet Count 153 Mean Platelet Volume 9.9 Neutrophils % 64.6 Lymphocytes % 20.3 Monocytes % 9.4 Eosinophils % 4.6 Basophils % 0.6 Nucleated Red Blood Cells % 0.0 Neutrophils # 4.1 Lymphocytes # 1.3 Monocytes # 0.6 Eosinophils # 0.3 Basophils # 0.0 Nucleated Red Blood Cells # 0.0 Sodium Level 140 Potassium Level 4.1 Chloride Level 103 Carbon Dioxide Level 29 Anion Gap 12 Blood Urea Nitrogen 19 Creatinine 0.84 Glucose Level 88 Calcium Level 8.0 L Medications Medications Current Medications Ondansetron HCl (Zofran Inj) 4 mg Q6H PRN IV NAUSEA AND/OR VOMITING Last administered on 07/29/17 04:35; Admin Dose 4 MG; Start 07/24/17 at 15:00 Acetaminophen (Tylenol Tab) 650 mg Q6H PRN PO PAIN LEVEL 1-3 OR FEVER Last administered on 07/25/17 05:13; Admin Dose 650 MG; Start 07/24/17 at 15:00 Morphine Sulfate (morphine) 2 mg Q4H PRN IV SEVERE PAIN LEVEL 7-10 Last administered on 07/28/17 18:08; Admin Dose 2 MG; Start 07/24/17 at 15:00 Docusate Sodium (Colace) 100 mg Q12H PRN PO CONSTIPATION Last administered on 07/30/17 05:29; Admin Dose 100 MG; Start 07/24/17 at 15:00 Pantoprazole (Protonix Tab) 40 mg DAILY@06 PO Last administered on 07/31/17 05 :25; Admin Dose 40 MG; Start 07/26/17 at 06:00 Clonidine (Catapres) 0.1 mg Q6H PRN PO SBP above 160 Last administered on 09:32; Admin Dose 0.1 MG; Start 07/27/17 at 03:00 Hydralazine HCl (Apresoline) 25 mg Q6H PRN PO SBP more than 160. Last administered on 07/30/17 20:13; Admin Dose 25 MG; Start 07/27/17 at 05:30 Doxycycline Hyclate (Vibramycin) 100 mg BID PO Last administered on 07/31/17 08:06; Admin Dose 100 MG; Start 07/29/17 at 21:00 Aspirin (Ecotrin) 81 mg DAILY PO Last administered on 07/31/17 08:06; Admin Dose 81 MG; Start 07/31/17 at 09:00 Furosemide (Lasix) 20 mg DAILY PO Last administered on 07/31/17 08:06; Admin Dose 20 MG; Start 07/30/17 at 15:30 Lisinopril (Zestril) 2.5 mg DAILY PO Last administered on 07/31/17 08:06; Admin Dose 2.5 MG; Start 07/31/17 at 09:00 Polyethylene Glycol (Miralax) 17 gm DAILY PRN PO CONSTIPATION; Start 07/30/17 at 20:00 Chester Gomez DO Jul 31, 2017 11:09
[2017-07-31] MEDS ORDERED: FUROSEMIDE 40 MG INJ IV ONE (11:30)
--- NOTE | 2017-07-31 13:53 | CONS ---
Date/Time of Note Date/Time of Note DATE: 07/31/17 TIME: 13:52 Assessment/Plan Assessment/Plan Chief Complaint/Hosp Course SUBJECTIVE: No acute events overnight. The patient is alert, looks comfortable , no fevers MICROBIOLOGY: Blood culture remains negative. Urine culture consistent with contaminant. DIAGNOSTICS: Chest x-ray on admission revealed no acute cardiopulmonary disease. CT of the brain showed no acute abnormalities. A bilateral lower extremities ultrasound was negative for DVT. ALLERGIES: NONE. ANTIMICROBIALS: Doxycycline PHYSICAL EXAMINATION: GENERAL: This is a fragile, well-developed, elderly man who is alert, in no distress. HEENT: Head atraumatic, normocephalic. Sclerae anicteric. Buccal mucosa pink. NECK: Supple. CHEST: Rise symmetrical. Breath sounds clear. HEART: S1, S2. ABDOMEN: Soft. Bowel tones present. EXTREMITIES: Without edema. Patient has necrotic wounds on the back of his calves and feet. ASSESSMENT: 1. S/p systemic inflammatory response syndrome. 2. 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 3. Hypertension. 4. Congestive heart failure. 5. BPH. PLAN: Remains stable, continue local wound care, off load, PT, cardiology rec-s DW staff Problems: Consultation Date/Type/Reason Admit Date/Time Jul 25, 2017 at 09:26 Type of Consultation: id Exam/Review of Systems Vital Signs Vitals Vital Signs Date Time Temp Pulse Resp B/P Pulse Ox O2 Delivery O2 Flow Rate FiO2 07/31/17 11:25 61 107/63 07/31/17 07:33 97.7 17 96 07/30/17 07:59 Room Air Intake and Output 07/30/17 07/30/17 07/31/17 15:00 23:00 07:00 Intake Total 900 ml 480 ml Output Total 600 ml 500 ml Balance 300 ml -20 ml Results Result Diagram: 07/31/17 0508 07/31/17 0508 Results 24 hrs Laboratory Tests Test 07/31/17 05:08 White Blood Count 6.3 Red Blood Count 3.60 L Hemoglobin 10.9 L Hematocrit 32.6 L Mean Corpuscular Volume 90.6 Mean Corpuscular Hemoglobin 30.3 Mean Corpuscular Hemoglobin Concent 33.4 Red Cell Distribution Width 13.7 Platelet Count 153 Mean Platelet Volume 9.9 Neutrophils % 64.6 Lymphocytes % 20.3 Monocytes % 9.4 Eosinophils % 4.6 Basophils % 0.6 Nucleated Red Blood Cells % 0.0 Neutrophils # 4.1 Lymphocytes # 1.3 Monocytes # 0.6 Eosinophils # 0.3 Basophils # 0.0 Nucleated Red Blood Cells # 0.0 Sodium Level 140 Potassium Level 4.1 Chloride Level 103 Carbon Dioxide Level 29 Anion Gap 12 Blood Urea Nitrogen 19 Creatinine 0.84 Glucose Level 88 Calcium Level 8.0 L Medications Medications Current Medications Ondansetron HCl (Zofran Inj) 4 mg Q6H PRN IV NAUSEA AND/OR VOMITING Last administered on 07/29/17 04:35; Admin Dose 4 MG; Start 07/24/17 at 15:00 Acetaminophen (Tylenol Tab) 650 mg Q6H PRN PO PAIN LEVEL 1-3 OR FEVER Last administered on 07/25/17 05:13; Admin Dose 650 MG; Start 07/24/17 at 15:00 Morphine Sulfate (morphine) 2 mg Q4H PRN IV SEVERE PAIN LEVEL 7-10 Last administered on 07/28/17 18:08; Admin Dose 2 MG; Start 07/24/17 at 15:00 Docusate Sodium (Colace) 100 mg Q12H PRN PO CONSTIPATION Last administered on 07/30/17 05:29; Admin Dose 100 MG; Start 07/24/17 at 15:00 Pantoprazole (Protonix Tab) 40 mg DAILY@06 PO Last administered on 07/31/17 05 :25; Admin Dose 40 MG; Start 07/26/17 at 06:00 Clonidine (Catapres) 0.1 mg Q6H PRN PO SBP above 160 Last administered on 09:32; Admin Dose 0.1 MG; Start 07/27/17 at 03:00 Hydralazine HCl (Apresoline) 25 mg Q6H PRN PO SBP more than 160. Last administered on 07/30/17 20:13; Admin Dose 25 MG; Start 07/27/17 at 05:30 Doxycycline Hyclate (Vibramycin) 100 mg BID PO Last administered on 07/31/17 08:06; Admin Dose 100 MG; Start 07/29/17 at 21:00 Aspirin (Ecotrin) 81 mg DAILY PO Last administered on 07/31/17 08:06; Admin Dose 81 MG; Start 07/31/17 at 09:00 Polyethylene Glycol (Miralax) 17 gm DAILY PRN PO CONSTIPATION; Start 07/30/17 at 20:00 Furosemide (Lasix) 40 mg DAILY PO ; Start 08/01/17 at 09:00 Lisinopril (Zestril) 5 mg BID PO ; Start 07/31/17 at 21:00 NOVA OLIVIER NP Jul 31, 2017 13:53
--- NOTE | 2017-07-31 15:49 | PN ---
Date/Time of Note Date/Time of Note DATE: 07/31/17 TIME: 15:46 Assessment/Plan VTE Prophylaxis VTE Prophylaxis Intervention: other (Xarelto) Lines/Catheters IV [facility] Type [facility]from [facility] Saline [facility] Urinary Cath still in place: No Assessment/Plan Chief Complaint/Hosp Course Patient with episodes of hypertension, pressure medication is optimized by cardiology, yara Willams monitor electrolytes. If patient condition continue to improve patient can be be discharged to [facility] tomorrow Assessment/Plan -Bilateral lower extremity colitis with ulcers. S/p treatment with antibiotics continue current wound care. Dr. Muller is following in infection disease consultation. -Bilateral lower extremities edema secondary to CHF, resolving. -Hypertension, continue lisinopril. -Diastolic congestive heart failure preserved ejection fraction, continue gentle diuresis. Dr. Gomez is following in cardiology consultation -Atrial fibrillation, continue Xarelto -BPH Further recommendations based on clinical course. Plan of care discussed with Dr. Melo. Problems: Exam/Review of Systems Vital Signs Vitals Vital Signs Date Time Temp Pulse Resp B/P Pulse Ox O2 Delivery O2 Flow Rate FiO2 07/31/17 13:58 97.4 62 17 128/68 96 07/30/17 07:59 Room Air Intake and Output 07/30/17 07/30/17 07/31/17 15:00 23:00 07:00 Intake Total 900 ml 480 ml Output Total 600 ml 500 ml Balance 300 ml -20 ml Exam Constitutional: alert, oriented Respiratory: normal air movement Cardiovascular: nl pulses Gastrointestinal: non-tender, soft Extremities: edema, normal pulses Neurological: nl mental status Skin: other (Left lower extremity ulcer) Results Result Diagram: 07/31/17 0508 07/31/17 0508 Results 24 hrs Laboratory Tests Test 07/31/17 05:08 White Blood Count 6.3 Red Blood Count 3.60 L Hemoglobin 10.9 L Hematocrit 32.6 L Mean Corpuscular Volume 90.6 Mean Corpuscular Hemoglobin 30.3 Mean Corpuscular Hemoglobin Concent 33.4 Red Cell Distribution Width 13.7 Platelet Count 153 Mean Platelet Volume 9.9 Neutrophils % 64.6 Lymphocytes % 20.3 Monocytes % 9.4 Eosinophils % 4.6 Basophils % 0.6 Nucleated Red Blood Cells % 0.0 Neutrophils # 4.1 Lymphocytes # 1.3 Monocytes # 0.6 Eosinophils # 0.3 Basophils # 0.0 Nucleated Red Blood Cells # 0.0 Sodium Level 140 Potassium Level 4.1 Chloride Level 103 Carbon Dioxide Level 29 Anion Gap 12 Blood Urea Nitrogen 19 Creatinine 0.84 Glucose Level 88 Calcium Level 8.0 L Medications Medications Current Medications Ondansetron HCl (Zofran Inj) 4 mg Q6H PRN IV NAUSEA AND/OR VOMITING Last administered on 07/29/17 04:35; Admin Dose 4 MG; Start 07/24/17 at 15:00 Acetaminophen (Tylenol Tab) 650 mg Q6H PRN PO PAIN LEVEL 1-3 OR FEVER Last administered on 07/25/17 05:13; Admin Dose 650 MG; Start 07/24/17 at 15:00 Morphine Sulfate (morphine) 2 mg Q4H PRN IV SEVERE PAIN LEVEL 7-10 Last administered on 07/28/17 18:08; Admin Dose 2 MG; Start 07/24/17 at 15:00 Docusate Sodium (Colace) 100 mg Q12H PRN PO CONSTIPATION Last administered on 07/30/17 05:29; Admin Dose 100 MG; Start 07/24/17 at 15:00 Pantoprazole (Protonix Tab) 40 mg DAILY@06 PO Last administered on 07/31/17 05 :25; Admin Dose 40 MG; Start 07/26/17 at 06:00 Clonidine (Catapres) 0.1 mg Q6H PRN PO SBP above 160 Last administered on 09:32; Admin Dose 0.1 MG; Start 07/27/17 at 03:00 Hydralazine HCl (Apresoline) 25 mg Q6H PRN PO SBP more than 160. Last administered on 07/30/17 20:13; Admin Dose 25 MG; Start 07/27/17 at 05:30 Doxycycline Hyclate (Vibramycin) 100 mg BID PO Last administered on 07/31/17 08:06; Admin Dose 100 MG; Start 07/29/17 at 21:00 Aspirin (Ecotrin) 81 mg DAILY PO Last administered on 07/31/17 08:06; Admin Dose 81 MG; Start 07/31/17 at 09:00 Polyethylene Glycol (Miralax) 17 gm DAILY PRN PO CONSTIPATION; Start 07/30/17 at 20:00 Furosemide (Lasix) 40 mg DAILY PO ; Start 08/01/17 at 09:00 Lisinopril (Zestril) 5 mg BID PO ; Start 07/31/17 at 21:00 ELIZABETH SOUZA Jul 31, 2017 15:49
[2017-07-31] MEDS: RIVAROXABAN 15 MG TABLET PO SCH (17:17)
[2017-07-31] MEDS: LISINOPRIL 5 MG TAB PO SCH (21:16)
[2017-08-01 02:31] VITALS: BP 137/67; RESP 18
[2017-08-01] MEDS: PANTOPRAZOLE (EC) 40 MG TAB PO SCH (05:31)
[2017-08-01 05:46] LABS: BASOPHIL # 0.1 10^3/ul (0.0-0.1); BASOPHILS % 0.8 % (0.0-2.0); EOSINOPHILS # 0.3 10^3/ul (0.0-0.5); LYMPHOCYTES # 1.3 10^3/ul (0.8-2.9); LYMPHOCYTES % 19.5 % (15.0-51.0); MEAN CORPUSCULAR HEMOGLOBIN 30.4 pg (29.0-33.0); MEAN CORPUSCULAR HGB CONC 33.3 g/dl (32.0-37.0); MEAN CORPUSCULAR VOLUME 91.2 fl (82.0-101.0); MEAN PLATELET VOLUME 9.6 fl (7.4-10.4); MONOCYTE # 0.6 10^3/ul (0.3-0.9); MONOCYTES % 8.9 % (0.0-11.0); NEUTROPHIL # 4.3 10^3/ul (1.6-7.5); NEUTROPHILS % 66.2 % (39.0-77.0); PLATELET COUNT 149 10^3/UL (140-415); RED BLOOD COUNT 3.29 10^6/ul (4.70-6.10); RED CELL DISTRIBUTION WIDTH 13.9 % (11.5-14.5); WHITE BLOOD COUNT 6.5 10^3/ul (4.8-10.8)
[2017-08-01 06:07] LABS: CALCIUM 8.3 mg/dl (8.4-10.2); CREATININE 0.93 mg/dl (0.61-1.24); POTASSIUM 3.7 mmol/L (3.5-5.1)
[2017-08-01 07:43] VITALS: BP 160/70; RESP 17
[2017-08-01] MEDS: LISINOPRIL 5 MG TAB PO SCH ×2 (08:02→21:06)
[2017-08-01] MEDS: ASPIRIN (EC) 325 MG TAB PO SCH (08:02)
[2017-08-01] MEDS: DOCUSATE SODIUM 100 MG CAP PO PRN (08:02)
[2017-08-01] MEDS: DOXYCYCLINE 100 MG TAB PO SCH ×2 (08:02→21:06)
[2017-08-01] MEDS ORDERED: FUROSEMIDE 20 MG TAB PO SCH (09:00)
[2017-08-01 14:00] VITALS: BP 102/58; RESP 18
[2017-08-01] MEDS ORDERED: POTASSIUM CHLORIDE (SR) 20 MEQ TAB PO STA (14:59)
--- NOTE | 2017-08-01 14:59 | CONS ---
Date/Time of Note Date/Time of Note DATE: 08/01/17 TIME: 14:58 Assessment/Plan Assessment/Plan Additional Assessment/Plan Cellulitis with lower extremity skin breakdown Acute decompensated diastolic congestive heart failure Atrial fibrillation Preserved ejection fraction HTN -Blood pressure trend improving, continue lisinopril and if needed could titrate up as renal function permits. Continue anticoagulation if no contraindication. Consultation Date/Type/Reason Admit Date/Time Jul 25, 2017 at 09:26 Type of Consultation: cv 24 HR Interval Summary Free Text/Dictation Denies shortness of breath, palpitations Exam/Review of Systems Vital Signs Vitals Vital Signs Date Time Temp Pulse Resp B/P Pulse Ox O2 Delivery O2 Flow Rate FiO2 08/01/17 07:43 98.5 67 17 160/70 99 07/30/17 07:59 Room Air Intake and Output 07/31/17 07/31/17 08/01/17 15:00 23:00 07:00 Intake Total 840 ml 450 ml Output Total 700 ml 750 ml Balance 140 ml -300 ml Exam No apparent distress Constitutional: alert, oriented Head: normocephalic Respiratory: other (Coarse breath sounds bilaterally, no wheezing) Cardiovascular: other (S1-S2 heard), regular rate and rhythm Gastrointestinal: bowel sounds, non-tender, soft Extremities: edema (Bandages lower extremity) Results Result Diagram: 08/01/17 0525 08/01/17 0525 Results 24 hrs Laboratory Tests Test 08/01/17 05:25 White Blood Count 6.5 Red Blood Count 3.29 L Hemoglobin 10.0 L Hematocrit 30.0 L Mean Corpuscular Volume 91.2 Mean Corpuscular Hemoglobin 30.4 Mean Corpuscular Hemoglobin Concent 33.3 Red Cell Distribution Width 13.9 Platelet Count 149 Mean Platelet Volume 9.6 Neutrophils % 66.2 Lymphocytes % 19.5 Monocytes % 8.9 Eosinophils % 4.0 Basophils % 0.8 Nucleated Red Blood Cells % 0.0 Neutrophils # 4.3 Lymphocytes # 1.3 Monocytes # 0.6 Eosinophils # 0.3 Basophils # 0.1 Nucleated Red Blood Cells # 0.0 Sodium Level 139 Potassium Level 3.7 Chloride Level 103 Carbon Dioxide Level 31 Anion Gap 9 Blood Urea Nitrogen 21 H Creatinine 0.93 Glucose Level 88 Calcium Level 8.3 L Medications Medications Current Medications Ondansetron HCl (Zofran Inj) 4 mg Q6H PRN IV NAUSEA AND/OR VOMITING Last administered on 07/29/17 04:35; Admin Dose 4 MG; Start 07/24/17 at 15:00 Acetaminophen (Tylenol Tab) 650 mg Q6H PRN PO PAIN LEVEL 1-3 OR FEVER Last administered on 07/25/17 05:13; Admin Dose 650 MG; Start 07/24/17 at 15:00 Morphine Sulfate (morphine) 2 mg Q4H PRN IV SEVERE PAIN LEVEL 7-10 Last administered on 07/28/17 18:08; Admin Dose 2 MG; Start 07/24/17 at 15:00 Docusate Sodium (Colace) 100 mg Q12H PRN PO CONSTIPATION Last administered on 08/01/17 08:02; Admin Dose 100 MG; Start 07/24/17 at 15:00 Pantoprazole (Protonix Tab) 40 mg DAILY@06 PO Last administered on 08/01/17 05 :31; Admin Dose 40 MG; Start 07/26/17 at 06:00 Clonidine (Catapres) 0.1 mg Q6H PRN PO SBP above 160 Last administered on 09:32; Admin Dose 0.1 MG; Start 07/27/17 at 03:00 Hydralazine HCl (Apresoline) 25 mg Q6H PRN PO SBP more than 160. Last administered on 07/30/17 20:13; Admin Dose 25 MG; Start 07/27/17 at 05:30 Doxycycline Hyclate (Vibramycin) 100 mg BID PO Last administered on 08/01/17 08:02; Admin Dose 100 MG; Start 07/29/17 at 21:00 Aspirin (Ecotrin) 81 mg DAILY PO Last administered on 08/01/17 08:02; Admin Dose 81 MG; Start 07/31/17 at 09:00 Polyethylene Glycol (Miralax) 17 gm DAILY PRN PO CONSTIPATION Last administered on 08/01/17 05:31; Admin Dose 17 GM; Start 07/30/17 at 20:00 Furosemide (Lasix) 40 mg DAILY PO Last administered on 08/01/17 08:05; Admin Dose 40 MG; Start 08/01/17 at 09:00 Lisinopril (Zestril) 5 mg BID PO Last administered on 08/01/17 08:02; Admin Dose 5 MG; Start 07/31/17 at 21:00 Chester Gomez DO Aug 01, 2017 14:59
[2017-08-01] MEDS: RIVAROXABAN 15 MG TABLET PO SCH (17:15)
--- NOTE | 2017-08-01 18:19 | DS ---
Date/Time of Note Date/Time of Note DATE: 08/01/17 TIME: 18:17 Discharge Summary Admission/Discharge Info Admit Date/Time Jul 25, 2017 at 09:26 Discharge Date/Time Patient Condition: Stable Hx of Present Illness The patient is 82-year-old gentleman who was brought to emergency room by family him home due to bilateral lower extremity swelling and ulcers. Patient is a poor historian and most of the history was obtained from medical records and talking to nursing staff. Patient has a history of hypertension, CHF, BPH. Patient was diagnosed with bilateral lower extremity cellulitis and admitted for further evaluation and management. Patient denies any nausea vomiting denies diarrhea denies shortness of breath, denies chest pain. Hospital Course Patient is discharged to to [facility] convalescent -Bilateral lower extremity colitis with ulcers. S/p treatment with antibiotics , continue current wound care. Dr. Muller is following in infection disease consultation. -Bilateral lower extremities edema secondary to CHF, resolving. -Hypertension, continue lisinopril. -Diastolic congestive heart failure preserved ejection fraction, continue gentle diuresis. Dr. Gomez is following in cardiology consultation -Atrial fibrillation, continue Xarelto -BPH Plan of care discussed with Dr. Melo. Home Meds Reported Medications Aspirin* (Aspirin* Chew) 81 Mg Tab.chew, 81 MG PO DAILY, TAB.CHEW 07/24/17 Rivaroxaban* (Xarelto*) 20 Mg Tablet, 20 MG PO WITH DINNER, TAB 07/24/17 Furosemide* (Furosemide*) 40 Mg Tablet, 40 MG PO BID, TAB 07/24/17 Tamsulosin Hcl* (Flomax*) 0.4 Mg Cap.er.24h, 0.4 MG PO HS, CAP 07/24/17 Follow-up Plan BMP in 1 week Primary Care Provider Not On Staff Doctor Pending Labs Laboratory Tests Test 08/01/17 05:25 White Blood Count 6.510^3/ul (4.8-10.8) Red Blood Count 3.2910^6/ul (4.70-6.10) Hemoglobin 10.0g/dl (14.0-18.0) Hematocrit 30.0% (42.0-52.0) Mean Corpuscular Volume 91.2fl (82.0-101.0) Mean Corpuscular Hemoglobin 30.4pg (29.0-33.0) Mean Corpuscular Hemoglobin Concent 33.3g/dl (32.0-37.0) Red Cell Distribution Width 13.9% (11.5-14.5) Platelet Count 38111^3/UL (140-415) Mean Platelet Volume 9.6fl (7.4-10.4) Neutrophils % 66.2% (39.0-77.0) Lymphocytes % 19.5% (15.0-51.0) Monocytes % 8.9% (0.0-11.0) Eosinophils % 4.0% (0.0-7.0) Basophils % 0.8% (0.0-2.0) Nucleated Red Blood Cells % 0.0/100WBC (0.0-0.0) Neutrophils # 4.310^3/ul (1.6-7.5) Lymphocytes # 1.310^3/ul (0.8-2.9) Monocytes # 0.610^3/ul (0.3-0.9) Eosinophils # 0.310^3/ul (0.0-0.5) Basophils # 0.110^3/ul (0.0-0.1) Nucleated Red Blood Cells # 0.010^3/ul (0.0-0.0) Sodium Level 139mmol/L (135-144) Potassium Level 3.7mmol/L (3.5-5.1) Chloride Level 103mmol/L (97-110) Carbon Dioxide Level 31mmol/L (21-31) Anion Gap 9 (8-16) Blood Urea Nitrogen 21mg/dl (7-20) Creatinine 0.93mg/dl (0.61-1.24) Glucose Level 88mg/dl (70-220) Calcium Level 8.3mg/dl (8.4-10.2) ELIZABETH SOUZA Aug 01, 2017 18:19
--- NOTE | 2017-08-01 18:49 | CONS ---
Date/Time of Note Date/Time of Note DATE: 08/01/17 TIME: 18:47 Assessment/Plan Assessment/Plan Chief Complaint/Hosp Course SUBJECTIVE: No acute events overnight. The patient is alert, looks comfortable , no fevers MICROBIOLOGY: Blood culture remains negative. Urine culture consistent with contaminant. DIAGNOSTICS: Chest x-ray on admission revealed no acute cardiopulmonary disease. CT of the brain showed no acute abnormalities. A bilateral lower extremities ultrasound was negative for DVT. ALLERGIES: NONE. ANTIMICROBIALS: Doxycycline PHYSICAL EXAMINATION: GENERAL: This is a fragile, well-developed, elderly man who is alert, in no distress. HEENT: Head atraumatic, normocephalic. Sclerae anicteric. Buccal mucosa pink. NECK: Supple. CHEST: Rise symmetrical. Breath sounds clear. HEART: S1, S2. ABDOMEN: Soft. Bowel tones present. EXTREMITIES: Without edema. Patient has necrotic wounds on the back of his calves and feet. ASSESSMENT: 1. S/p systemic inflammatory response syndrome. 2. 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 3. Hypertension. 4. Congestive heart failure. 5. BPH. PLAN: Remains stable, continue local wound care, off load, ok dc off abx DW staff Problems: Consultation Date/Type/Reason Admit Date/Time Jul 25, 2017 at 09:26 Type of Consultation: id Exam/Review of Systems Vital Signs Vitals Vital Signs Date Time Temp Pulse Resp B/P Pulse Ox O2 Delivery O2 Flow Rate FiO2 08/01/17 14:00 98.6 74 18 102/58 96 07/30/17 07:59 Room Air Intake and Output 07/31/17 07/31/17 08/01/17 15:00 23:00 07:00 Intake Total 840 ml 450 ml Output Total 700 ml 750 ml Balance 140 ml -300 ml Results Result Diagram: 08/01/17 0525 08/01/17 0525 Results 24 hrs Laboratory Tests Test 08/01/17 05:25 White Blood Count 6.5 Red Blood Count 3.29 L Hemoglobin 10.0 L Hematocrit 30.0 L Mean Corpuscular Volume 91.2 Mean Corpuscular Hemoglobin 30.4 Mean Corpuscular Hemoglobin Concent 33.3 Red Cell Distribution Width 13.9 Platelet Count 149 Mean Platelet Volume 9.6 Neutrophils % 66.2 Lymphocytes % 19.5 Monocytes % 8.9 Eosinophils % 4.0 Basophils % 0.8 Nucleated Red Blood Cells % 0.0 Neutrophils # 4.3 Lymphocytes # 1.3 Monocytes # 0.6 Eosinophils # 0.3 Basophils # 0.1 Nucleated Red Blood Cells # 0.0 Sodium Level 139 Potassium Level 3.7 Chloride Level 103 Carbon Dioxide Level 31 Anion Gap 9 Blood Urea Nitrogen 21 H Creatinine 0.93 Glucose Level 88 Calcium Level 8.3 L Medications Medications Current Medications Ondansetron HCl (Zofran Inj) 4 mg Q6H PRN IV NAUSEA AND/OR VOMITING Last administered on 07/29/17 04:35; Admin Dose 4 MG; Start 07/24/17 at 15:00 Acetaminophen (Tylenol Tab) 650 mg Q6H PRN PO PAIN LEVEL 1-3 OR FEVER Last administered on 07/25/17 05:13; Admin Dose 650 MG; Start 07/24/17 at 15:00 Morphine Sulfate (morphine) 2 mg Q4H PRN IV SEVERE PAIN LEVEL 7-10 Last administered on 07/28/17 18:08; Admin Dose 2 MG; Start 07/24/17 at 15:00 Docusate Sodium (Colace) 100 mg Q12H PRN PO CONSTIPATION Last administered on 08/01/17 08:02; Admin Dose 100 MG; Start 07/24/17 at 15:00 Pantoprazole (Protonix Tab) 40 mg DAILY@06 PO Last administered on 08/01/17 05 :31; Admin Dose 40 MG; Start 07/26/17 at 06:00 Clonidine (Catapres) 0.1 mg Q6H PRN PO SBP above 160 Last administered on 09:32; Admin Dose 0.1 MG; Start 07/27/17 at 03:00 Hydralazine HCl (Apresoline) 25 mg Q6H PRN PO SBP more than 160. Last administered on 07/30/17 20:13; Admin Dose 25 MG; Start 07/27/17 at 05:30 Doxycycline Hyclate (Vibramycin) 100 mg BID PO Last administered on 08/01/17 08:02; Admin Dose 100 MG; Start 07/29/17 at 21:00 Aspirin (Ecotrin) 81 mg DAILY PO Last administered on 08/01/17 08:02; Admin Dose 81 MG; Start 07/31/17 at 09:00 Polyethylene Glycol (Miralax) 17 gm DAILY PRN PO CONSTIPATION Last administered on 08/01/17 05:31; Admin Dose 17 GM; Start 07/30/17 at 20:00 Furosemide (Lasix) 40 mg DAILY PO Last administered on 08/01/17 08:05; Admin Dose 40 MG; Start 08/01/17 at 09:00 Lisinopril (Zestril) 5 mg BID PO Last administered on 08/01/17 08:02; Admin Dose 5 MG; Start 07/31/17 at 21:00 NOVA OLIVIER NP Aug 01, 2017 18:49
[2017-08-01 20:00] VITALS: BP 138/62; RESP 20
== END 2017-08-01 22:19 | DRG 602 ==
LOC: E/R 19:54 → MS3 07-24 03:30 → OBSVTOIN 07-25 09:26 → PP2 07-26 18:21
PROVIDERS: ADMIT Internal Medicine; ATTEND Internal Medicine
DX: L03.116 Cellulitis of left lower limb (principal); I50.33 Acute on chronic diastolic (congestive) heart failure; I48.91 Unspecified atrial fibrillation; L97.911 Non-pressure chronic ulcer of unspecified part of right lower leg limited to breakdown of skin; L97.921 Non-pressure chronic ulcer of unspecified part of left lower leg limited to breakdown of skin; I11.0 Hypertensive heart disease with heart failure; L03.115 Cellulitis of right lower limb; N40.0 Benign prostatic hyperplasia without lower urinary tract symptoms; K59.00 Constipation, unspecified; I87.2 Venous insufficiency (chronic) (peripheral)
CPT/HCPCS: 70450; 71010; 80048; 80053; 80202; 81003; 82565; 83036; 83605; 83880; 84443; 84484; 84520; 85025; 85610; 85730; 87040; 87086; 93005; 93306; 93926; 93970; 96374; 97116; 97162; 97530; C9113; G0378; J1170; J1650; J1940; J1956; J2270; J2405; J2543; J3370

== ENCOUNTER 2017-09-27 02:48 | Inpatient (IN) | END 2017-09-28 15:50 | disposition home or self-care (01) | DRG 593 ==

== ENCOUNTER 2017-10-10 09:25 | Emergency (ER) | END 2017-10-10 14:50 | disposition home or self-care (01) ==